=== PATIENT | female | born 1990 | race Caucasian/White ===

== ENCOUNTER 2021-06-17 16:12 | Emergency (ER) | payer SELFPAY ==
[2021-06-17 16:19] VITALS: BP 127/80; PULSE 115; RESP 35; TEMP 36.2; O2SAT 100
== END 2021-06-18 03:47 | disposition left against medical advice (07) ==
PROVIDERS: Emergency Provider Nurse Practitioner
DX: R06.02 Shortness of breath (principal)
CPT/HCPCS: 99199

== ENCOUNTER 2022-06-14 16:37 | Inpatient (IN) | payer OTHER, SELFPAY ==
[2022-06-14 16:55] VITALS: BP 129/82; PULSE 94
[2022-06-14 16:56] VITALS: BMI 30.8
--- NOTE | 2022-06-14 16:57 | LDADM ---
This patient, Susanne Escalante, was admitted to Labor/Delivery/Recovery 108 on 06/14/22 at 16:37. Plans for labor, pain management and were discussed with patient. Patient/family oriented to hospital policies and general routines including ID bracelet, bed and alarms, visiting hours, pain management, procedures, bathroom and other care routines, personal items, smoking policy, room service/diet and guest tray routines, infant security routines, and visiting hours. Patient/Family are encouraged to report perceived risks to care and to ask questions if they do not understand what they are told or what they should do. See OBIX for further documentation.
[2022-06-14 17:14] LABS: Basophils Absolute Auto 0.1 K/mm3 (0.0-0.1); Basophils Percent Auto 0.4 % (0.2-1.2); Eosinophils Absolute Auto 0.2 K/mm3 (0-0.3); Eosinophils Percent Auto 1.1 % (0-4.4); Hemoglobin 13.2 g/dL (12.0-15.0); Immature Granulocyte Absolute 0.28 K/mm3 (0.00-0.031); Immature Granulocyte Percent A 2.1 % (0-0.5); Lymphocytes Absolute Auto 2.68 K/mm3 (0.9-3.2); Lymphocytes Percent Auto 20.1 % (18.3-44.2); Mean Corpuscular HGB Conc 33.8 g/dl (32-36); Mean Corpuscular Hemoglobin 30.2 pg (26-34); Mean Corpuscular Volume 89.2 fl (80-100); Mean Platelet Volume 11.9 fl (7.4-10.4); Monocytes Absolute Auto 0.8 K/mm3 (0.1-0.6); Monocytes Percent Auto 6.3 % (2.6-8.5); Neutrophils Absolute Auto 9.3 K/mm3 (1.3-6.7); Platelet Count Result 170 k/mm3 (150-375); Red Blood Count 4.37 M/mm3 (4.2-5.4); Red Cell Distribution Width 13.7 % (11.5-14.5); White Blood Count 13.3 K/mm3 (4.5-10.0)
[2022-06-14] MEDS: DINOPROSTONE 10 MG VAG INSERT VAGINAL (17:15)
--- NOTE | 2022-06-14 19:17 | WPDANESEPP ---
Anes - Eval Pre Procedure Procedure: labor epidural Date/Time: 06/14/22 19:17 Surgeon: fritz Preop Diagnosis: pain during labor Pre Op Diagnosis: Induction of Labor Patient Data Age: 32 Gender: F Height: 1.65 m Weight: 84 kg Last Vital Signs Pulse 94 06/14/22 16:55 BP 129/82 06/14/22 16:55 O2 Del Method Room Air 06/14/22 16:56 Allergies Allergy/AdvReac Type Severity Reaction Status Date / Time No Known Allergies Allergy Verified 06/14/22 17:03 Home Medications Medication Instructions Recorded Confirmed Type vitamins-iron fumarate 65 1 tablet PO DAILY 01/01/22 06/14/22 History mg iron-folic acid 1 mg tablet Laboratory Tests 06/14/22 06/14/22 06/14/22 16:50 16:50 16:50 WBC 13.3 K/mm3 H K/mm3 (4.5-10.0) RBC 4.37 M/mm3 M/mm3 (4.2-5.4) Hgb 13.2 g/dL g/dL (12.0-15.0) Hct 39.0 % % (37.0-47.0) MCV 89.2 fl fl (80-100) MCH 30.2 pg pg (26-34) MCHC 33.8 g/dl g/dl (32-36) RDW 13.7 % % (11.5-14.5) Plt Count 170 k/mm3 k/mm3 (150-375) MPV 11.9 fl H fl (7.4-10.4) Immature Gran % (Auto) 2.1 % H % (0-0.5) Neut % (Auto) 70.0 % % (45.5-73.1) Lymph % (Auto) 20.1 % % (18.3-44.2) [place] % (Auto) 6.3 % % (2.6-8.5) Eos % (Auto) 1.1 % % (0-4.4) Baso % (Auto) 0.4 % % (0.2-1.2) Lymph # (Auto) 2.68 K/mm3 K/mm3 (0.9-3.2) [place] # (Auto) 0.8 K/mm3 H K/mm3 (0.1-0.6) Eos # (Auto) 0.2 K/mm3 K/mm3 (0-0.3) Baso # (Auto) 0.1 K/mm3 K/mm3 (0.0-0.1) Abs Immat Gran (auto) 0.28 K/mm3 H K/mm3 (0.00-0.031) Absolute Neuts (auto) 9.3 K/mm3 H K/mm3 (1.3-6.7) Absolute Nucleated RBC 0.0 K/mm3 K/mm3 (0.0-0.012) Nucleated RBC % 0.0 % % (0.0-0.2) RPR Pending Blood Type A Positive Antibody Screen Negative Patient hx anesthesia problems: none Family hx anesthesia problems: none Results Review: All pre-operative results and documents have been reviewed as part of the pre-operative evaluation. [facility] Past Medical History Medical History (Updated 06/14/22 @ 19:18 by Danielle Spears CRNA) IUP (intrauterine ), incidental PTSD (post-traumatic stress disorder) Suppression of menstruation Family History Family History (Updated 06/12/22 @ 15:43 by Rigo Martinez RN) Mother Diabetes mellitus Hypertension Cancer Father Skin cancer Lung cancer Social History Social History (Updated 01/01/22 @ 15:33 by Emelina Chen Gerardo) Smoking status: Current some day smoker Tobacco type: cigarettes Second hand tobacco smoke exposure: Yes Alcohol intake: never Substance use: never Substance use type: does not use Lack of Transportation: No Lack of Food: Never True Current Housing: I Have Housing Concerned About Future Housing: No Difficulty Paying Gas/Electric Bills: No Difficulty Paying for Meds: No Currently Unemployed: No Education: Associate Degree Difficulty w/ Childcare or Family Care: No Additional living arrangements comments: 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
[2022-06-14 19:53] VITALS: BP 122/89; PULSE 93; RESP 16; TEMP 36.5
[2022-06-14 23:50] VITALS: BP 121/71; PULSE 80
[2022-06-15] VITALS (52 sets, daily range): BP systolic 72–135; BP diastolic 41–79; PULSE 61–142; RESP 16–18; TEMP 36.6–37.1; O2SAT 93–100
[2022-06-15] MEDS: fentaNYL CITRATE INJ (*CRX) 100 MCG/2 ML VIAL IV PUSH ×2 (00:10→04:32)
[2022-06-15] MEDS: OXYTOCIN 30 UNITS/NS 500 ML 30 UNITS/500 ML BAG IV CONT (05:01)
[2022-06-15] MEDS: LACTATED RINGERS 1,000 ML 125 ML IV CONT ×2 (05:01→05:51)
[2022-06-15] MEDS: ONDANSETRON INJ 4 MG/2 ML VIAL IV PUSH (07:08)
--- NOTE | 2022-06-15 10:15 | P.PCNOB_ITS ---
OB - Delivery Note Procedure Induction method: Per Misoprostol Protocol and Per Pitocin Protocol Delivery augmentation: Rupture of Membranes Delivery monitor: External FHT and External Uterine Route of delivery: Episiotomy description: None Laceration Description: Perineal - 1st Degree Delivery repair: chromic Specimen: No Quantitative Blood Loss (ml): 250 Anesthesia type: Epidural Disposition: Floor Complications: none Narrative: patient prepped in usual manner for this procedure. Maternal expulsive efforts readily delivered vertex over intact perineum. Further effort delivered t he rest the baby and the cord was clamped and cut baby placed on maternal abdomen. Placenta delivered spontaneously. Cervix vagina vulva were inspected with first-degree midline laceration noted. This was readily approximated using 2-0 chromic to approximate the vaginal tissue deep tissue in a subcuticular manner. At this point the procedure was considered terminated the immediate postoperative condition of mother baby were both excellent. [place] Baby Weeks of gestation at delivery: 39 gender: Female Weight (pounds): 7 Weight (ounces): 5 presentation: vertex Placenta delivery description: Spontaneous Cord Vessel Description: 3 Vessels score one minute: 7 score five minutes: 9 AMG Delivery Billing Delivery Delivery: Delivery Charge
--- NOTE | 2022-06-15 10:15 | WPDHPUPDATE1 ---
History and Physical Update Update Date/Time: 06/15/22 10:15 History and Physical has been reviewed, including an updated exam of the patient. There are NO changes in the patient's condition. Risks, benefits, and alternatives have been discussed and questions answered. Patient agrees to proceed with procedure.
--- NOTE | 2022-06-15 10:15 | WPDOBADMIT ---
Obstetrics - Admit Note Admission Note: record reviewed. No pertinent additions to the history and/or any subsequent changes in the physical findings that are not consistent with the expected course of the were found. Additions to the history and/or subsequent changes in the physical findings follow. None.
[2022-06-15] MEDS: WITCH HAZEL 40 PADS 1 PAD TOPICAL (12:38)
[2022-06-15] MEDS: BENZOCAINE 20% AER SPR (*SP) 56 GM CAN 1 SPRAY TOPICAL (12:38)
--- NOTE | 2022-06-15 12:45 | PC.NURSE ---
Patient transferred to post room #288 via wheelchair. Support person present. Oriented to unit, room, information board, rooming in, admission packet and security measures. Patient verbalizes understanding.
[2022-06-15] MEDS: IBUPROFEN 600 MG TABLET PO ×2 (12:57→19:08)
[2022-06-16 00:05] VITALS: BP 105/73; PULSE 74; RESP 16; TEMP 36.6; O2SAT 98
[2022-06-16 03:41] VITALS: BP 109/61; PULSE 73; RESP 16; TEMP 36.3; O2SAT 99
[2022-06-16 04:25] LABS: Hematocrit 38.2 % (37.0-47.0); Hemoglobin 12.4 g/dL (12.0-15.0)
[2022-06-16] MEDS: MULTIVIT/MIN/PREN/FOL AC/IRON TABLET 1 TAB PO (07:49)
[2022-06-16] MEDS: IBUPROFEN 600 MG TABLET PO (07:49)
[2022-06-16] MEDS: TETANUS,DIPHTHERIA,AC PERTUSSIS ADULT (0.5 ML) BOOSTRIX IM (07:50)
[2022-06-16 08:00] VITALS: BP 122/64; PULSE 72; RESP 16; TEMP 36.7; O2SAT 99
--- NOTE | 2022-06-16 09:24 | PM.OBDSVD ---
DS: Admitting Diagnosis Discharge Date 06/16/2022 Admitting Diagnosis OB - DS: Summary OB Procedures : None OB Procedures Intrapartum: Spontaneous Vag Delivery OB Procedures: : None Time Spent with Patient Time attestation: Total time spent providing and/or coordinating discharge services: DS: Data Data Completed and Pending Labs on day of discharge: Labs from last 24 hours 06/16/22 04:19 Hgb 12.4 Hct 38.2 Discharge Plan Discharge Discharging Clinician: León Aaron Patient Disposition: Home, Self-Care Activity: as tolerated Diet: as tolerated Patient Instructions: Antibiotic Form Stand Alone Forms: General Discharge Information Follow-up/Referrals: León Aaron MD [Physician] - 3 Weeks Discharge Medications: New ibuprofen 600 mg Tablet 600 mg PO Q6H PRN (Reason: Cramping) Qty: 30 0RF Continued vit-iron fum-folic ac 65 mg iron- 1 mg tablet 1 tablet PO DAILY Date of admission: 06/14/22 16:37 Primary Care Provider: UNKNOWN,DOCTOR Admitting Provider: León Aaron Attending physician on admission: León Aaron Condition: Stable
[2022-06-17 09:30] VITALS: BP 131/84; PULSE 93; RESP 20; TEMP 36.4; O2SAT 100
[2022-06-17 11:53] LABS: Rapid Plasma Reagin Non-Reactive (NonReactive)
== END 2022-06-16 13:15 | disposition home or self-care (01) | DRG 560 ==
LOC: ANHLDR 16:42 → ANHOB2 06-15 12:49
PROVIDERS: Admitting Provider Obstetrics & Gynecology; Visit Provider Obstetrics & Gynecology
DX: O76 Abnormality in fetal heart rate and rhythm complicating labor and delivery (principal); O70.0 First degree perineal laceration during delivery; Z3A.39 39 weeks gestation of pregnancy; Z37.0 Single live birth
CPT/HCPCS: 36415; 85014; 85018; 85025; 86592; 86850; 86900; 86901; 90715; A9270; J2405; J2590; J2795; J3010; J7120

== ENCOUNTER 2023-01-02 00:45 | Day surgery (SDC) | payer OTHER, SELFPAY ==
[2022-12-20 15:32] VITALS: BMI 31.1
--- NOTE | 2022-12-20 15:38 | PC.NURSE ---
Report to the Outpatient Waiting Room, entrance under the green pavilion located off [facility], at time 0700 on date 01/02/23. Planned Procedure Time: 0900. Time changes happen often and if your time is changed the preop area will call you the afternoon before. - You and your visitor will be asked to self-screen and do not enter if you have any COVID symptoms. - A mask is optional within the hospital at this time. Patients may have clear liquids (water, carbonated beverages, clear teas, apple juice) until 3 hours prior to surgery with a maximum of 20 ounces. - No food from midnight until time of surgery Take the following medications with a SIP of water the morning of surgery: N/A DO NOT STOP ANY OF YOUR OTHER PRESCRIPTION MEDICATIONS PRIOR TO SURGERY ?EXCEPT THE FOLLOWING Medications to discontinue per physician: N/A Date to take last dose: N/A Please no make-up, nail danish, hairspray, perfume, deodorant, or body powder the day of surgery. No jewelry (including any body piercings) or valuables the day of surgery, leave them at home. Please take a shower or bath the night before, or the morning of, surgery with an antibacterial soap. Wear comfortable, loose fitting clothing. - Jewelry must be removed prior to entering the operating room. Rings and piercings that are not removed may be cut off. - The hospital will not accept responsibility for valuables. - Please leave all valuables, including medications, at home the day of surgery. If you are going home after surgery, a licensed ambulance driver paramedic must drive you home. - NO public transportation without another adult if you receive anesthesia. - We recommend that an adult stay with you for 24 hours following discharge. - We also recommend that you do not drive, make important decision, drink alcoholic beverages, or take any drugs that were not prescribed by your health care provider for at least 24 hours after your discharge time. Follow any additional instructions given to you from your surgeon. If you or anyone in your household have experienced Covid symptoms in the past week, please notify your surgeon or the nurse liaison at the phone number below for possible testing. Telephone instructions given to PT - PAULO LUIS and asked if any additional questions and then verbalized understanding. Patient advised to call surgeon office or pre surgery nurse liaison [phone] if any additional questions.
[2023-01-02] VITALS (10 sets, daily range): BP systolic 123–170; BP diastolic 75–91; PULSE 60–96; RESP 13–24; TEMP 36.2–36.4; O2SAT 97–100
[2023-01-02] MEDS: LACTATED RINGERS 1,000 ML 30 ML IV CONT ×2 (07:30→09:40)
--- NOTE | 2023-01-02 08:30 | WPDHPUPDATE1 ---
History and Physical Update Update Date/Time: 01/02/23 08:30 History and Physical has been reviewed, including an updated exam of the patient. There are NO changes in the patient's condition. Risks, benefits, and alternatives have been discussed and questions answered. Patient agrees to proceed with procedure.
--- NOTE | 2023-01-02 08:30 | W.PM.PROC2 ---
Procedure Note - Detailed Date of Procedure 01/02/23 Pre-op Diagnosis micromastia Post-op Diagnosis Same Procedure Performed Bilateral Augmentation Mammaplasty Surgeon Kyle Avilez MD Anesthesia General Findings Bilateral Glenis Conley SoftTouch 485 cc Right - Dual Plane 3 REF# [id number] SN [id number] Left - Dual Plane 2 REF# [id number] SN [id number] Description of Procedure She is here today for bilateral breast augmentation. Previously and again today the risks, benefits, alternatives were discussed in extensive detail. I wanted her to be very realistic about the risks involved as well as expectations. She understands she has a degree of ptosis and will have this (waterafall deformity) post-op. She understands her options for this and has elected to proceed as above. We discussed aftercare and what to monitor for. Made sure answered all of her questions to her satisfaction today and consent was obtained. Marked in the preoperative holding area with their verification. The patient was taken to the operating room placed supine on the operating table. Anesthesia was provided by anesthesiology. A surgical time-out was taken. We cleansed the skin and 1% lidocaine and 0.25% Marcaine with epinephrine was used anesthetize as a field block. She was prepped and draped in a standard sterile fashion. Tegaderm nipple Singer were placed. A 15 blade used to make an incision along the inframammary fold. Dissection was continued at 45 degree angle until the chest wall as identified. I incised the pectoralis major along its inferior border and completely released the inferior border leaving the medial border intact. I created a subpectoral pocket in the appropriate dimensions based on our preoperative planning for the implant. I then copiously irrigated with saline solution and verified a strict hemostasis. Next the use a triple antibiotic and Betadine containing solution to irrigate the pocket. I washed my gloves with the triple antibiotic and Betadine solution. We washed the implant immediately upon opening it with this solution and only opened it when we needed it. I used implant funnel and no-touch technique. The implant was introduced into the pocket using the funnel. Having verified positioning of the implant this was closed using 2-0 PDS followed by 3-0 Monocryl in a running subcuticular 4-0 Monocryl followed by tissue glue. Fluffs and surgical bra were placed. Patient was awoke and taken to PACU without difficulty. All instrument sponge counts were correct at the end of the case. Estimated Blood Loss 25 Drains No Packing No Pathology None sent Complications No immediate complications Condition Stable Disposition PACU
--- NOTE | 2023-01-02 08:31 | WPDANESEPPF ---
Anes - Initial Pre Proc Eval Procedure: Operation Date: 01/02/23 09:00 Proposed Procedures p Bilateral Breast Augmentation - Kyle Avilez MD Date/Time: 01/02/23 08:31 Surgeon: Kyle Avilez MD Pre Op Diagnosis: micromastia Patient Data Age: 32 Gender: F Height: 1.65 m Weight: 85.11 kg Last Vital Signs Temp 97.5 F L 01/02/23 07:30 Pulse 72 01/02/23 07:30 Resp 16 01/02/23 07:30 BP 133/77 01/02/23 07:30 Pulse Ox 100 01/02/23 07:30 O2 Del Method Room Air 01/02/23 07:30 Allergies Allergy/AdvReac Type Severity Reaction Status Date / Time No Known Allergies Allergy Verified 01/02/23 07:59 Home Medications Medication Instructions Recorded Confirmed Type No Home Medications 12/20/22 01/02/23 History Patient hx anesthesia problems: none Family hx anesthesia problems: none Results Review: All pre-operative results and documents have been reviewed as part of the pre-operative evaluation. [facility] Past Medical History Medical History (Updated 06/14/22 @ 19:18 by Danielle Spears CRNA) IUP (intrauterine ), incidental PTSD (post-traumatic stress disorder) Suppression of menstruation Family History Family History (Updated 06/12/22 @ 15:43 by Rigo Martinez RN) Mother Diabetes mellitus Hypertension Cancer Father Skin cancer Lung cancer Social History Social History (Updated 01/01/22 @ 15:33 by Emelina Chen Gerardo) Years smoked: 16 Smoking status: Former smoker Tobacco type: cigarettes Second hand tobacco smoke exposure: Yes Smoking end date: 09/11/21 Alcohol intake: never Substance use: never Substance use type: does not use Lack of Transportation: No Lack of Food: Never True Current Housing: I Have Housing Concerned About Future Housing: No Difficulty Paying Gas/Electric Bills: No Difficulty Paying for Meds: No Currently Unemployed: No Education: Associate Degree Difficulty w/ Childcare or Family Care: No Living arrangements: with family Additional living arrangements comments: Occupation/Education: occupation 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 Gender identity (if verbalized by the patient): Female Sexual Orientation (if Verbalized by the Patient): Straight or Heterosexual Spiritual care concerns: No Anes - Eval Final PreProcedure Day of Procedure 01/02/23 08:31 Patient weight: normal Heart: regular rate and rhythm Lungs: clear to auscultation Airway: Mallampati scale class II Neurological: alert and oriented Last oral intake: >/= 8 hours ASA classification: II Emergent: no Anesthetic plan: proceed Anesthesia type and monitoring: general LMA and standard monitoring Results Review: All pre-operative results and documents have been reviewed as part of the pre-operative evaluation. Informed Consent: The patient's anesthetic plan and its attendant risks and benefits were discussed with the patient/family/POA. Questions were solicited and answers provided to the satisfaction of the patient/family/POA.
[2023-01-02] MEDS: ceFAZolin 2 GM/D5W 50 ML 2 GM/50 ML BAG IVPB (08:48)
[2023-01-02] MEDS: BUPivacaine HCL 0.25% PF 30 ML VIAL INFILTRATE (08:55)
[2023-01-02] MEDS: LIDO 1%/EPINEPHRINE 1:100,000 50 ML VIAL 30 ML INFILTRATE (08:55)
[2023-01-02] MEDS: TRANEXAMIC ACID 1,000MG/ISO100 1,000 MG/100 ML BAG 200 MG IVPB (08:58)
[2023-01-02] MEDS: NACL 0.9% IRRIG POUR BOTTLE 900 ML, GENTAMICIN SULFATE INJ 160 MG, ceFAZolin 2 GM, POVI... IRRIGATION (09:03)
[2023-01-02] MEDS: fentaNYL CITRATE INJ (*CRX) 100 MCG/2 ML VIAL 25 MCG IV PUSH ×7 (10:00→11:12)
[2023-01-02] MEDS: oxyCODONE HCL (*CRX) 5 MG TAB IR PO (11:08)
== END 2023-01-02 12:00 | disposition home or self-care (01) ==
PROVIDERS: Visit Provider Surgery Plastic and Reconstructive Surgery
PROC: (CPT 19325; principal; 2023-01-02 09:00)
DX: Z41.1 Encounter for cosmetic surgery (principal); N64.82 Hypoplasia of breast
CPT/HCPCS: 19325; A9270; J0690; J1100; J1580; J2250; J2405; J2704; J3010; J7120

== ENCOUNTER 2023-08-08 09:26 | Emergency (ER) | payer OTHER, SELFPAY ==
[2023-08-08 09:29] VITALS: BP 127/83; PULSE 72; RESP 18; TEMP 36.6; O2SAT 100
[2023-08-08 09:34] VITALS: O2SAT 100
[2023-08-08 09:35] VITALS: BP 127/83; O2SAT 99
[2023-08-08 09:37] VITALS: O2SAT 100
[2023-08-08] MEDS: LIDOCAINE HCL 2% VISC SOLN 15 ML UDC PO (09:47)
--- NOTE | 2023-08-08 09:56 | ED.GENADULT ---
HPI - General Adult General Chief complaint: Upper Respiratory Infection Stated complaint: sore throat Time Seen by Provider: 08/08/23 09:33 History of Present Illness HPI narrative: patient is a 33-year-old female who presents the ER with reports of sore throat. Ongoing last 3 days. Had a strep swab yesterday that was negative. Has a hoarse voice today. Reports she has difficulty breathing through her nose. No difficulty swallowing. Denies fevers or chills or sweats. No known sick contacts. She has not had COVID swab or flu swab. No chest pain or chest pressure. No exertional dyspnea. Related Data Allergies Allergy/AdvReac Type Severity Reaction Status Date / Time No Known Allergies Allergy Verified 01/02/23 07:59 Review of Systems Constitutional: Constitutional: Reports no additional constitutional complaints ENT: Denies dysphagia, Reports nasal congestion and Reports sore throat Respiratory: Respiratory: Denies cough, Denies dyspnea and Denies wheezing PMFSH Past Medical History Medical History (Updated 08/08/23 @ 12:09 by Seven Chino MD) IUP (intrauterine ), incidental PTSD (post-traumatic stress disorder) Suppression of menstruation Family History Family History (Updated 06/12/22 @ 15:43 by Rigo Martinez RN) Mother Diabetes mellitus Hypertension Cancer Father Skin cancer Lung cancer Social History Social History (Updated 01/01/22 @ 15:33 by Emelina Chen [facility] Years smoked: 16 Smoking status: Former smoker Tobacco type: cigarettes Second hand tobacco smoke exposure: Yes Smoking end date: 09/11/21 Alcohol intake: never Substance use: never Substance use type: does not use Lack of Transportation: No Lack of Food: Never True Current Housing: I Have Housing Concerned About Future Housing: No Difficulty Paying Gas/Electric Bills: No Difficulty Paying for Meds: No Currently Unemployed: No Education: Associate Degree Difficulty w/ Childcare or Family Care: No Living arrangements: with family Additional living arrangements comments: Occupation/Education: occupation 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 HEAD: Normocephalic, atraumatic. ENT: Mucous membranes moist. Left tonsil with a small white crypt lesion, minimal hypertrophy. normal uvula. NECK: Supple. No palpable lymphadenopathy. CHEST: Clear to auscultation. No respiratory distress. HEART: Regular rate and rhythm. Normal peripheral pulses. EXTREMITIES: Normal range of motion. No edema. NEURO: Alert and oriented x3. PSYCH: Normal mood and affect. Course Course Emergency Course: Strep and viral swabs negative. Patient improved with viscous lidocaine. Will discharge supportive care. Patient verbalized understanding. Vital Signs Vital signs: Vital Signs Temperature 97.9 F 08/08/23 09:29 Pulse Rate 72 08/08/23 09:29 Respiratory Rate 18 08/08/23 09:29 Blood Pressure 127/83 08/08/23 09:29 Pulse Oximetry 100 08/08/23 09:29 Oxygen Delivery Room Air 08/08/23 09:29 Temperature 97.9 F 08/08/23 09:29 Pulse Rate 72 08/08/23 09:29 Respiratory Rate 18 08/08/23 09:29 Blood Pressure 120/85 08/08/23 10:01 Pulse Oximetry 98 08/08/23 10:01 Oxygen Delivery Room Air 08/08/23 09:37 Medical Decision Making Vital Signs Vital Signs: Vital Signs Temperature 97.9 F 08/08/23 09:29 Pulse Rate 72 08/08/23 09:29 Respiratory Rate 18 08/08/23 09:29 Blood Pressure 127/83 08/08/23 09:29 Pulse Oximetry 100 08/08/23 09:29 Oxygen Delivery Room Air 08/08/23 09:29 Temperature 97.9 F 08/08/23 09:29 Pulse Rate 72 08/08/23
[2023-08-08 10:01] VITALS: BP 120/85; O2SAT 98
[2023-08-08 10:18] LABS: Strep Group A RT-PCR NOT DETECTED (Negative)
[2023-08-08 10:33] LABS: Influenza A QL RT-PCR Negative (Negative); Influenza B QL RT-PCR Negative (Negative); RSV RNA, RT-PCR Negative (Negative); SARS-CoV-2 RNA PCR Negative (Negative)
== END 2023-08-08 12:33 | disposition home or self-care (01) ==
PROVIDERS: Emergency Provider Emergency Medicine
DX: J04.0 Acute laryngitis (principal); Z20.822 Contact with and (suspected) exposure to COVID-19; Z87.891 Personal history of nicotine dependence
CPT/HCPCS: 87637; 87651; 99283; J8540

== ENCOUNTER 2023-10-06 09:45 | Emergency (ER) | payer MEDICAID, SELFPAY ==
[2023-10-06 09:56] VITALS: BP 118/83; PULSE 90; RESP 18; TEMP 36.8; O2SAT 99
--- NOTE | 2023-10-06 10:12 | ED.SKABFB ---
HPI - Skin/Abscess/Foreign Bdy General Chief complaint: Skin/Abscess/Foreign Body Stated complaint: Skin Sore/Finger Source: patient Mode of arrival: ambulatory Limitations: no limitations History of Present Illness HPI narrative: 33 y/o female presented for c/o painful rash to right ring finger for a few days. States it started as a few small cracks to the bend of the finger, then developed some pus filled bumps. States skin is dry and finger is hard to bend. Denies significant itching. 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 Related Data Allergies Allergy/AdvReac Type Severity Reaction Status Date / Time No Known Allergies Allergy Verified 01/02/23 07:59 Review of Systems Review of Systems: CONSTITUTIONAL: Denies body aches, fever, chills, or sweats. CARDIOVASCULAR: Denies chest pain, palpitations, or edema. RESPIRATORY: Denies cough or dyspnea. SKIN: rash to right ring finger MUSCULOSKELETAL: Denies back pain, joint pain, or myalgia. NEUROLOGIC: Denies headache, numbness, tingling, or weakness. [facility] Past Medical History Medical History IUP (intrauterine ), incidental PTSD (post-traumatic stress disorder) Suppression of menstruation Family History Family History Mother Diabetes mellitus Hypertension Cancer Father Skin cancer Lung cancer Social History Social History Years smoked: 16 Smoking status: Former smoker Tobacco type: cigarettes Second hand tobacco smoke exposure: Yes Smoking end date: 09/11/21 Alcohol intake: never Substance use: never Substance use type: does not use Lack of Transportation: No Lack of Food: Never True Current Housing: I Have Housing Concerned About Future Housing: No Difficulty Paying Gas/Electric Bills: No Difficulty Paying for Meds: No Currently Unemployed: No Education: Associate Degree Difficulty w/ Childcare or Family Care: No Living arrangements: with family Additional living arrangements comments: Occupation/Education: occupation 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 Please see nursing chart for further information. There is no relevant family history pertinent to the presenting complaint Exam Narrative: GENERAL: Well-appearing EYES: conjunctivae clear, and EOMI. ENT: Mucous membranes moist. NECK: Supple. No lymphadenopathy SKIN: Right 4th digit DIP approx 2cm scaly dry red skin, few scattered papules and pustule, tender appears c/w dyshidrotic eczema. Slight decrease in ROM to the DIP. NEURO: Alert and oriented x3. Course Course Emergency Course: Patient is aware of diagnosis, understands and agrees to treatment plan. Anticipatory guidance given. Patient agrees to follow-up as directed and is aware of reasons to seek care at the emergency department. Portions of this record may have been created with voice recognition software Level of Care: Express Care Visit Vital Signs Vital signs: Vital Signs Temperature 98.2 F 10/06/23 09:56 Pulse Rate 90 10/06/23 09:56 Respiratory Rate 18 10/06/23 09:56 Blood Pressure 118/83 10/06/23 09:56 Pulse Oximetry 99 10/06/23 09:56 Oxygen Delivery Room Air 10/06/23 09:56 Temperature 98.2 F 10/06/23 09:56 Pulse Rate 90 10/06/23 09:56 Respiratory Rate 18 10/06/23 09:56 Blood Pressure 118/83 10/06/23 09:56 Pulse Oximetry 99 10/06/23 09:56 Ox
== END 2023-10-06 10:26 | disposition home or self-care (01) ==
PROVIDERS: Emergency Provider Nurse Practitioner Family
DX: L30.9 Dermatitis, unspecified (principal); Z87.891 Personal history of nicotine dependence
CPT/HCPCS: 99213; G0463

== ENCOUNTER 2024-06-09 17:23 | Emergency (ER) | payer OTHER, SELFPAY ==
--- NOTE | ~2024-06-09 | XR_ITS ---
EXAMINATION: XR foot RT min 3V DATE: 06/09/2024 18:04 INDICATION: 2 days of nontraumatic lateral and plantar right foot pain. TECHNIQUE: Dorsoplantar, two oblique and lateral views of the right foot were obtained. COMPARISON: None. FINDINGS: Alignment is normal. No fracture. Mild polyarticular osteoarthritis at the tarsometatarsal and interp halangeal joints. No periosteal reaction or suspicious lytic or blastic bone lesions. Soft tissues ar e unremarkable. No ankle joint effusion. IMPRESSION: 1. Mild polyarticular osteoarthritis in the mid and forefoot. No acute osseous abnormality. Reviewed, dictated and finalized at location A. CEMENTER
[2024-06-09 17:35] VITALS: BP 120/78; PULSE 71; RESP 18; TEMP 36.3; O2SAT 100
--- NOTE | 2024-06-09 17:43 | ED_ITS ---
HPI - Extremity Injury (Lower) General Chief Complaint: Extremity Injury, Lower Stated Complaint: Rt Foot Cramp Time Seen by Provider: 06/09/24 17:45 Source: patient, RN notes reviewed and old records reviewed Mode of arrival: ambulatory Limitations: no limitations History of Present Illness HPI Narrative: 34 year old female who presents to [facility] care with complaints of 2 day history of pain in right lateral right foot and plantar aspect of foot to ball of foot with no known injury.Patient states that 2 nights ago she was awakened by cramp like sensation in the arch of her foot. 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 Patient reports that pain is constant in lateral aspect of foot and plantar aspect form heel to the bottom of her foot. Patient reports only way she can get any relief is if she wraps her foot. Patient reports that even wiggling toes is painful, increased with any movement and attempted maxine bearing. MD complaint: other (foot pain) Onset (ago): day(s) (2) Severity: moderate Exacerbating factors: weight bearing and movement Treatments prior to arrival: other (wrap to right foot and rest off foot) Related Data Allergies Allergy/AdvReac Type Severity Reaction Status Date / Time No Known Allergies Allergy Verified 06/09/24 17:44 Review of Systems Review of Systems: CONSTITUTIONAL: Denies fever, chills, or sweats. EYES: Denies visual changes, redness, or discharge. ENT: Denies rhinorrhea, congestion, sore throat, or otalgia. CARDIOVASCULAR: Denies chest pain, palpitations, or edema. RESPIRATORY: Denies cough or dyspnea. GASTROINTESTINAL: Denies abdominal pain, nausea, vomiting, or diarrhea. GENITOURINARY: Denies dysuria or hematuria. SKIN: Denies rash or itching. MUSCULOSKELETAL: Denies back pain, positive for right foot pain lateral and plantar from heel to ball of foot, or myalgia. NEUROLOGIC: Denies headache, numbness, or weakness. PSYCHIATRIC: Denies anxiety or depression. All systems reviewed & are unremarkable except as noted in HPI and below PMFSH Past Medical History Medical History IUP (intrauterine ), incidental PTSD (post-traumatic stress disorder) Suppression of menstruation Surgical History Surgical History History of breast augmentation Family History Family History Mother Diabetes mellitus Hypertension Cancer Father Skin cancer Lung cancer Social History Social History Years smoked: 16 Smoking status: Former smoker Tobacco type: cigarettes Second hand tobacco smoke exposure: Yes Smoking end date: 09/11/21 Alcohol intake: never Substance use: never Substance use type: does not use Lack of Transportation: No Lack of Food: Never True Current Housing: I Have Housing Concerned About Future Housing: No Difficulty Paying Gas/Electric Bills: No Difficulty Paying for Meds: No Currently Unemployed: No Education: Associate Degree Difficulty w/ Childcare or Family Care: No Living arrangements: with family Additional living arrangements comments: Occupation/Education: occupation 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 There is no relevant family history pertinent to the presenting complaint Exam Narrative: GENERAL: Well-appearing, well-nourished, and in no acute distress. HEAD: Normocephalic, atraumatic. EYES: PERRLA and EOMI. ENT: Nares clear, no rhinorrhea or epistaxis. Mucous membranes moist. NECK: Supple.no lymphadenopathy CHEST: Clear to auscultation. No respiratory distress.SAO2 100% on room air HEART: Regular rate and rhythm. No murmur heard. Normal peripheral pulses. ABDOMEN: Soft, nontender, nondistended, normal active bowel sounds. EXTREMITIES: Normal range of motion. No edema.Exception noted to pain of right foot lateral and plantar aspect with no known injury, pain increases with any movement and with ambulation, no redness sor swelling or bruising, pedal pulse strong sensation and mobility is intact with discomfort.. SKIN: Warm, dry, no rash. NEURO: No focal deficits. Alert and oriented x3. Course Course Emergency Course: Patient is aware of diagnosis, understands and agrees to treatment plan.? Anticipatory guidance given.? Patient agrees to follow-up as directed and is aware of reasons to seek care at the emergency department. Portions of this record may have been created with voice recognition software Level of Care: Express Care Visit Vital Signs Vital signs: Vital Signs Temperature 36.3 C L 06/09/24 17:35 Pulse Rate 71 06/09/24 17:35 Respiratory Rate 18 06/09/24 17:35 Blood Pressure 120/78 06/09/24 17:35 Pulse Oximetry 100 06/09/24 17:35 Oxygen Delivery Room Air 06/09/24 17:35 Temperature 36.3 C L 06/09/24 17:35 Pulse Rate 71 06/09/24 17:35 Respiratory Rate 18 06/09/24 17:35 Blood Pressure 120/78 06/09/24 17:35 Pulse Oximetry 100 06/09/24 17:35 Oxygen Delivery Room Air 06/09/24 17:35 Reviewed MDM - Extremity Injury (Lower) Differential Diagnosis Differential diagnosis: Likely other (right foot fracture, osteoarthritis right foot,plantar fasciitis, pain right foot) Medical Records Attestation: I reviewed the patient's medical records. Imaging Data Attestation: I personally reviewed and interpreted this imaging study as follows: My impression: mild polyarticular osteoarthritis in mid and forefoot right foot, no acute osseous abnormality Radiologist's impression: [place] [id number] XRay Report Signed Patient: Susanne Escalante : 1990 MR#: [id number] Age: 34 Acct:[id number] Loc: [facility] ADM Date: 06/09/24Attending Dr: Ordering Physician: Rajani Escobar APRN Date of Service: 06/09/24 Procedure(s): XR foot RT min 3V Accession Number(s): [id number] cc: Rajani Escobar APRN; UNKNOWN,DOCTOR~ EXAMINATION: XR foot RT min 3V DATE: 06/09/2024 18:04 INDICATION: 2 days of nontraumatic lateral and plantar right foot pain. TECHNIQUE: Dorsoplantar, two oblique and lateral views of the right foot were obtained. COMPARISON: None. FINDINGS: Alignment is normal. No fracture. Mild polyarticular osteoarthritis at the tarsometatarsal and interphalangeal joints. No periosteal reaction or suspicious lytic or blastic bone lesions. Soft tissues are unremarkable. No ankle joint effusion. IMPRESSION: 1. Mild polyarticular osteoarthritis in the mid and forefoot. No acute osseous abnormality. Reviewed, dictated and finalized at location A. [employer] FLOW ASSOCIATE Dictated By: Jeramy Alexander MD 06/09/24 1838 Signed By: <Electronically signed by Jeramy Alexander MD in OV> Critical Care Time Critical Care Time Critical Care Time: No Discharge Plan Discharge Clinical Impression: Osteoarthritis of right foot Qualifiers: Osteoarthritis type: primary Qualified Code(s): M19.071 - Primary osteoarthritis, right ankle and foot Patient Disposition: Home, Self-Care Condition: Stable Instructions: Osteoarthritis (ED), Plantar Fasciitis Exercises (ED) Additional Instructions: Elastic wrap or orthopedic splint as directed for comfort for the next 5-7 days Tylenol for lesser pain Ibuprofen regularly for the next 2-3 days for the inflammation Follow-up with PCP if further problems or concerns Ice to the area 20-30 minutes 4-6 times a day Elevate above heart Exercises as instructed Follow up with PCP if no improvement for referral to orthopedic or podiatry. Wear good supportive shoes Prednisone as prescribed with food Prescriptions: New prednisone 20 mg tablet 20 mg PO BID Qty: 10 0RF Rx Instructions: take with food Follow-up/Referrals: UNKNOWN,DOCTOR [Primary Care Provider] - Stand Alone Forms: Work/School Release IP Time of Disposition: 18:43 Quality [place] Coma Scale Eyes: Open Verbal: Oriented and Alert Motor: Follows Commands [place] Coma Total Score: 15
== END 2024-06-09 18:59 | disposition home or self-care (01) ==
PROVIDERS: Emergency Provider Registered Nurse
DX: M19.071 Primary osteoarthritis, right ankle and foot (principal); Z87.891 Personal history of nicotine dependence
CPT/HCPCS: 73630; 99213; G0463

== ENCOUNTER 2024-07-22 10:56 | Emergency (ER) | payer OTHER, SELFPAY ==
--- NOTE | ~2024-07-22 | XR_ITS ---
EXAMINATION: XR chest 2V 07/22/2024 11:35 INDICATION: Cough PROCEDURE: 2 view chest COMPARISON: No prior studies for comparison. FINDINGS: The lungs are clear. The cardiomediastinal silhouette is within normal limits. There are no pleural effusions. There is no pneumothorax suspected. IMPRESSION: 1: NO ACUTE CARDIOPULMONARY DISEASE. Reviewed, dictated and finalized at location [facility] [employer]
--- NOTE | 2024-07-22 11:04 | ED.URI ---
HPI - URI/Sore Throat General Chief Complaint: Upper Respiratory Infection Stated Complaint: Chest Pain/Cough Time Seen by Provider: 07/22/24 11:04 Source: patient and RN notes reviewed Mode of arrival: ambulatory Limitations: no limitations History of Present Illness HPI Narrative: 34-year-old female presents concern for one-week history of cough, chest pain with coughing, nasal congestion and rhinorrhea. She reports productive cough. She has taken Sudafed without relief. She denies fever MD elicited complaint: cough Related Data Allergies Allergy/AdvReac Type Severity Reaction Status Date / Time No Known Allergies Allergy Verified 07/22/24 11:21 Review of Systems Review of Systems: CONSTITUTIONAL: Denies malaise, chills, sweats, or fever. EYES: Denies visual changes, redness, or discharge. ENT: Reports rhinorrhea, congestion CARDIOVASCULAR: Denies chest pain, palpitations, or edema. RESPIRATORY: Reports cough. Denies dyspnea. GASTROINTESTINAL: Denies abdominal pain, nausea, vomiting, diarrhea SKIN: Denies rash or itching. MUSCULOSKELETAL: Denies myalgia. NEUROLOGIC: Denies headache. All systems reviewed & are unremarkable except as noted in HPI and below PMFSH Past Medical History Medical History IUP (intrauterine ), incidental PTSD (post-traumatic stress disorder) Suppression of menstruation Surgical History Surgical History History of breast augmentation Family History Family History Mother Diabetes mellitus Hypertension Cancer Father Skin cancer Lung cancer Social History Social History Years smoked: 16 Smoking status: Former smoker Tobacco type: cigarettes Second hand tobacco smoke exposure: Yes Smoking end date: 09/11/21 Alcohol intake: never Substance use: never Substance use type: does not use Lack of Transportation: No Lack of Food: Never True Current Housing: I Have Housing Concerned About Future Housing: No Difficulty Paying Gas/Electric Bills: No Difficulty Paying for Meds: No Currently Unemployed: No Education: Associate Degree Difficulty w/ Childcare or Family Care: No Living arrangements: with family Additional living arrangements comments: Occupation/Education: occupation 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 There is no relevant family history pertinent to the presenting complaint Exam Narrative: GENERAL: Nontoxic-appearing, well-nourished, and in no acute distress. HEAD: Normocephalic EYES: PERRLA, conjunctivae clear ENT: Nares clear. Mucous membranes moist. TM pearly hodges with dull light reflex bilaterally; no tragal tenderness. Oropharynx not erythematous without lesions. Tonsils not enlarged and without exudate, no drooling, no hoarseness, no trismus, uvula midline. NECK: Supple. No lymphadenopathy CHEST: Clear to auscultation, breath sounds equal. No wheezing, rhonchi, rales, or stridor. No respiratory distress, speaks in full sentences. HEART: Regular rate and rhythm. No murmur heard. SKIN: Warm, dry, no rash. NEURO: Alert and oriented x3. PSYCH: Normal mood and affect Course Course Emergency Course: Patient is aware of diagnosis, understands and agrees to treatment plan. Anticipatory guidance given. Patient agrees to follow-up as directed and is aware of reasons to seek care at the emergency department. Portions of this record may have been created with voice recognition software Level of Care: Express Care Visit Vital Signs Vital signs: Reviewed. MDM - URI/Sore Throat MDM Narrative Medical decision making narrative: Differential diagnosis considered: Lozano virus, strep pharyngitis, allergic rhinitis, upper respiratory tract infection, sinusitis, rhinosinusitis, nasopharyngitis. viral pharyngitis, otitis media, otitis externa, pneumonia, bronchitis, viral cough syndrome, viral syndrome, and influenza. Exam findings show no acute concerns or changes; patient is non-toxic appearing and is in no distress. Patient is appropriate for outpatient treatment and follow-up. Lab Data Attestation: I reviewed the patient's lab results. Imaging Data My impression: Images reviewed, interpreted by radiologist, agree, see report. Radiologist's impression: Images reviewed, interpreted by radiologist, agree, see report. Critical Care Time Critical Care Time Critical Care Time: No Discharge Plan Discharge Clinical Impression: Bronchitis Patient Disposition: Home, Self-Care Condition: Stable Instructions: Acute Bronchitis (ED) Additional Instructions: Your x-ray looks normal, does not show pneumonia Recommend antihistamine such as Benadryl at night time and Zyrtec or Kelly during the day Cough syrup may cause drowsiness; avoid driving or take it at night time. Also, recommend symptomatic treatment includes: rest, fluids, and increase humidity of the air at home. Recommend Acetaminophen as directed on the bottle to reduce fever, pain, headache. Avoid smoking/second-hand smoke. Please schedule a follow-up visit with your personal physician for further evaluation and treatment within 3-5days. If your symptoms persist, change or worsen significantly before you can contact your personal physician then please, without delay, go to the emergency department for further evaluation. Patient Language: Greek Prescriptions: New promethazine-DM 6.25-15 mg/5 mL syrup 5 ml PO Q4-6H PRN (Reason: cough) Qty: 120 0RF methylprednisolone [Medrol (Mickey)] 4 mg tablets,dose pack See Rx Instructions .ROUTE .COMPLEX Qty: 21 0RF Rx Instructions: orally per package directions No Action prednisone 20 mg tablet 20 mg PO BID Qty: 10 0RF Rx Instructions: take with food Follow-up/Referrals: PHYSICIAN,CAREER DEVELOPMENT COORDINATOR/TEACHER [Primary Care Provider] - Stand Alone Forms: Work/School Release IP Time of Disposition: 11:48
[2024-07-22 11:21] VITALS: BP 129/80; PULSE 76; RESP 16; TEMP 36.7; O2SAT 100
== END 2024-07-22 11:55 | disposition home or self-care (01) ==
PROVIDERS: Emergency Provider Nurse Practitioner
DX: J40 Bronchitis, not specified as acute or chronic (principal); Z87.891 Personal history of nicotine dependence
CPT/HCPCS: 71046; 99213; G0463

== ENCOUNTER 2024-08-18 15:20 | Emergency (ER) | payer OTHER, SELFPAY ==
[2024-08-18 15:46] VITALS: BP 119/66; PULSE 61; RESP 16; TEMP 36.6; O2SAT 100
--- OUTSIDE RECORDS SUMMARY | 2024-08-18 15:52 | XMS_ITS | Referral Summary ---
Author Organization [facility] Address [address] [place] [address] Care Team Providers Care Medical Stenographer Name Role Phone None, Physician Primary Care Provider Unavailabl e Source Comments [facility],non-owned Affiliates and Associated Physician Practices is amultiple site organization consisting of ambulatory clinics and hospital sitesin [place], [place], [place] and [place]. This disclosure is being madepursuant to the Care Everywhere program and may not contain all information available regarding this patient. Last updated [facility] Allergies No known active allergies Medications * Be aware that medications may not be up to date on this document. Alwaysverify current medications with the patient. Medication Sig Dispensed Refills Start Date End Date Status acetaminophen (Tylenol) 325 MG tablet Take 1 (one) tablet by mouth every 4 hours as needed for Fever or Pain Maximum allowable Acetaminophen amount = 4 Grams (4000 mg) / 24 hours. 60 tablet 11/05/2023 Active cyclobenzaprine (Flexeril) 10 MG tablet Take 1 (one) tablet by mouth 3 times daily as needed for Muscle Spasms 30 tablet 11/05/2023 Active lidocaine (Lidoderm) 5 % patch Apply 1 (one) patch to skin once daily Apply patch to most painful area and remove after 12 hours. May reapply a new patch 12 hours later. 20 patch 11/05/2023 Active Immunizations Name Administration Dates Next Due TDAP (7yrs+) 11/04/2023 Social History Tobacco Use Types Packs/Day Years Used Date Smoking Tobacco: Never Smokeless Tobacco: Never Tobacco Cessation:Counseling Given: Not Answered Alcohol Use Standard Drinks/Week Comments Yes 0 (1 standard drink = 0.6 oz pur e alcohol) occasional AUDIT-C Answer Date Recorded Q1: How often do you have a drink containing alc ohol? Monthly or less 11/04/2023 Q2: How many drinks containi ng alcohol do you have on a typical day when you are drinking? 1 or 2 11/04/2023 Q3: How often do you have si x or more drinks on one occasion? Never 11/04/2023 Sex and Gender Information Value Date Recorded Sex Assigned at Not on file Gender Identity Not on file Sexual Orientation Not on file Last Filed Vital Signs Vital Sign Reading Time Taken Comments Blood Pressure 152/92 11/05/2023 1:00 AM CDT Pulse 89 11/05/2023 1:00 AM CDT Temperature 36.6 C (97.8 F) 11/04/2023 9:26 PM CDT Respiratory Rate 16 11/05/2023 1:00 AM CDT Oxygen Saturation 99% 11/05/2023 1:00 AM CDT Inhaled Oxygen Concentration - - Weight 79.4 kg (175 lb) 11/04/2023 9:26 PM CDT Height 165.1 cm (5' 5 ) 11/04/2023 9:26 PM CDT Body Mass Index 29.12 11/04/2023 9:26 PM CDT Plan of Treatment Not on file Care Teams Medical Stenographer Relationship Specialty Start Date End Date None, Physician [id number] [place] [address] PCP - General 11/04/23
--- OUTSIDE RECORDS SUMMARY | 2024-08-18 15:52 | XMS_ITS | Patient Health Summary ---
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 evidence of acute fracture, traumatic disc herniation ordegenerative changes in the cervical, thoracic, or lumbar spine. 3. A straightening of the cervical spine can be positional,developmental or represent muscle spasm. 4 No acute facial bone fractures identified. > Interpreting Provider: Vern Holt MD on 11/04/2023 10:22 PM Rodolfo Glaser MD CT ORDERABLES * CT THORACIC SPINE WO CONTRAST - T/L-spine trauma, spine fracture (11/04/2023 9:56 PM CDT) Anatomical Region Laterality Modality Spine Computed Tomogra phy 11/04/2023 9:59 PM CDT Impressions 11/04/2023 10:22 PM CDT IMPRESSION: 1. Normal appearance of the brain. No acute or traumatic intracranial process. 2. No evidence of acute fracture, traumatic disc herniation or degenerative changes in the cervical, thoracic, or lumbar spine. 3. A straightening of the cervical spine can be positional, developmental or represent muscle spasm. 4 No acute facial bone fractures identified. > Interpreting Provider: Vern Holt MD on 11/04/2023 10:22 PM Narrative 11/04/2023 10:22 PM CDT PROCEDURE: CT HEAD WO CONTRAST, CT FACIAL BONES WO CONTRAST, CT LUMBAR SPINE WO CONTRAST, CT THORACIC SPINE WO CONTRAST, CT CERVICAL SPINE WO CONTRAST DATE/TIME OF EXAM: 11/04/2023 9:58 PM CLINICAL INFORMATION: None relevant/not provided if blank. Indication: Trauma EXAMINATION: 1. CT OF THE HEAD WITHOUT CONTRAST 2. CT OF THE MAXILLOFACIAL BONES WITHOUT CONTRAST 3. CT OF THE CERVICAL SPINE WITHOUT CONTRAST 4. CT OF THE THORACIC SPINE WITHOUT CONTRAST 5. CT OF THE LUMBAR SPINE WITHOUT CONTRAST HISTORY: Trauma TECHNIQUE: CT scanning of the head, cervical, thoracic and lumbar spine as well as maxillofacial bones, orbits, and paranasal sinuses were performed without contrast according to standard protocol followed by reconstruction of the images by the technologist. The CT head the study was subjected to viz. ICH. COMPARISON: None. FINDINGS: HEAD: No acute intra- or extra-axial fluid collections are identified The basilar cisterns are patent. No mass effect or midline shift is seen. The hodges-white matter differentiation is normal. The ventricles are of normal size, shape, and morphology. There are no white matter changes, visible contusion or infarction. No acute fracture or scalp swelling is identified. MAXILLOFACIAL: The orbits and orbital contents appear normal. The paranasal sinuses are clear except for a mild mucosal thickening of the right maxillary sinus. The hard palate, mandible, and temporomandibular joints are intact. Dental caries and periapical lucencies of premolars and molars on the right side of maxilla are noted. The temporomandibular joints are normal and do not demonstrate dislocation or degenerative changes. No acute facial bone fractures are identified. The middle ear cavities and the mastoid air cells are clear. No soft tissue abnormality is identified. CERVICAL SPINE: There is a straightening of the cervical lordosis. Vertebral bodies are normal in height. No fracture, spondylolisthesis, perched facet or suspicious intrinsic bony lesion is identified. The craniocervical junction is normal. The intervertebral disc spaces are normal in height and there is no endplate osteophytosis. No posterior disc abnormality, blood in an or central canal stenosis is seen. The facets appear normal. The uncovertebral joints appear normal. No neural foraminal stenosis is seen. No soft tissue abnormality is identified. THORACIC SPINE: The alignment is normal. Vertebral bodies are normal in height. No fracture, spondylolisthesis, perched facet or suspicious intrinsic bony lesion is identified. The intervertebral disc spaces are normal in heights and there is no endplate osteophytosis. No posterior disc abnormality, blood in central canal or central canal stenosis is seen. The facets appear normal. No neural foraminal stenosis is seen. No soft tissue abnormality is identified. The imaged lungs are clear. The imaged portion of the aorta and mediastinum is within normal limits. LUMBAR SPINE: The alignment is normal. Vertebral bodies are normal in height. No fracture, spondylolisthesis, perched facet or suspicious intrinsic bony lesion is identified. The intervertebral disc spaces are normal in heights and there is no endplate osteophytosis. No posterior disc abnormality, blood in central canal, central canal stenosis or lateral recesses stenosis is seen. The facets appear normal. No neural foraminal stenosis is seen. No paravertebral or retroperitoneal traumatic soft tissue abnormality is identified. A simple cyst of left kidney and a subcentimeter cortical cystic lesion of left kidney which is too small to characterize are noted. Incidental note is made of a gallstone. A corpus luteal cyst in the right ovary is. Procedure Note Vern Holt MD - 11/04/2023 PROCEDURE: CT HEAD WO CONTRAST, CT FACIAL BONES WO CONTRAST, CT LUMBAR SPINE WO CONTRAST, CT THORACIC SPINE WO CONTRAST, CT CERVICAL SPINE WO CONTRAST DATE/TIME OF EXAM: 11/04/2023 9:58 PM CLINICAL INFORMATION: None relevant/not provided if blank. Indication: Trauma EXAMINATION: 1. CT OF THE HEAD WITHOUT CONTRAST 2. CT OF THE MAXILLOFACIAL BONES WITHOUT CONTRAST 3. CT OF THE CERVICAL SPINE WITHOUT CONTRAST 4. CT OF THE THORACIC SPINE WITHOUT CONTRAST 5. CT OF THE LUMBAR SPINE WITHOUT CONTRAST HISTORY: Trauma TECHNIQUE: CT scanning of the head, cervical, thoracic and lumbar spineas well as maxillofacial bones, orbits, and paranasal sinuses wereperformed without contrast according to standard protocol followed byreconstruction of the images by the technologist. The CT head the study was subjectedto viz. ICH. COMPARISON: None. FINDINGS: HEAD: No acute intra- or extra-axial fluid collections are identified Thebasilar cisterns are patent. No mass effect or midline shift is seen. The hodges-white matter differentiation is normal. The ventricles are of normal size, shape, and morphology. There are no white matter changes, visible contusion or infarction. No acute fractureor scalp swelling is identified. MAXILLOFACIAL: The orbits and orbital contents appear normal. The paranasal sinuses are clear except for a mild mucosal thickening of the right maxillary sinus. The hard palate, mandible, and temporomandibular joints are intact.Dental caries and periapical lucencies of premolars and molars on the rightside of maxilla are noted. The temporomandibular joints are normal and do not demonstrate dislocation or degenerative changes. No acute facial bone fractures are identified. The middle ear cavitiesand the mastoid air cells are clear. No soft tissue abnormality isidentified. CERVICAL SPINE: There is a straightening of the cervical lordosis. Vertebral bodies are normal in height. No fracture, spondylolisthesis, perched facet or suspicious intrinsic bony lesion is identified. The craniocervicaljunction is normal. The intervertebral disc spaces are normal in height and thereis no endplate osteophytosis. No posterior disc abnormality, blood in an or central canal stenosis is seen. The facets appear normal. Theuncovertebral joints appear normal. No neural foraminal stenosis is seen. No softtissue abnormality is identified. THORACIC SPINE: The alignment is normal. Vertebral bodies are normal in height. No fracture, spondylolisthesis, perched facet or suspicious intrinsic bony lesion is identified. The intervertebral disc spaces are normal inheights and there is no endplate osteophytosis. No posterior disc abnormality, blood in central canal or central canal stenosis is seen. The facetsappear normal. No neural foraminal stenosis is seen. No soft tissue abnormalityis identified. The imaged lungs are clear. The imaged portion of the aortaand mediastinum is within normal limits. LUMBAR SPINE: The alignment is normal. Vertebral bodies are normal in height. No fracture, spondylolisthesis, perched facet or suspicious intrinsic bony lesion is identified. The intervertebral disc spaces are normal inheights and there is no endplate osteophytosis. No posterior disc abnormality, blood in central canal, central canal stenosis or lateral recessesstenosis is seen. The facets appear normal. No neural foraminal stenosis is seen. No paravertebral or retroperitoneal traumatic soft tissue abnormality is identified. A simple cyst of left kidney and a subcentimeter cortical cystic lesion of left kidney which is too small to characterize arenoted. Incidental note is made of a gallstone. A corpus luteal cyst in theright ovary is. IMPRESSION: 1. Normal appearance of the brain. No acute or traumatic intracranial process. 2. No evidence of acute fracture, traumatic disc herniation ordegenerative changes in the cervical, thoracic, or lumbar spine. 3. A straightening of the cervical spine can be positional,developmental or represent muscle spasm. 4 No acute facial bone fractures identified. > Interpreting Provider: Vern Holt MD on 11/04/2023 10:22 PM Rodolfo Glaser MD CT ORDERABLES * CT CERVICAL SPINE WO CONTRAST - C-Spine Trauma, Spine fracture (11/04/2023 9:56 PM CDT) Anatomical Region Laterality Modality Spine Computed Tomogra phy 11/04/2023 9:59 PM CDT Impressions 11/04/2023 10:22 PM CDT IMPRESSION: 1. Normal appearance of the brain. No acute or traumatic intracranial process. 2. No evidence of acute fracture, traumatic disc herniation or degenerative changes in the cervical, thoracic, or lumbar spine. 3. A straightening of the cervical spine can be positional, developmental or represent muscle spasm. 4 No acute facial bone fractures identified. > Interpreting Provider: Vern Holt MD on 11/04/2023 10:22 PM Narrative 11/04/2023 10:22 PM CDT PROCEDURE: CT HEAD WO CONTRAST, CT FACIAL BONES WO CONTRAST, CT LUMBAR SPINE WO CONTRAST, CT THORACIC SPINE WO CONTRAST, CT CERVICAL SPINE WO CONTRAST DATE/TIME OF EXAM: 11/04/2023 9:58 PM CLINICAL INFORMATION: None relevant/not provided if blank. Indication: Trauma EXAMINATION: 1. CT OF THE HEAD WITHOUT CONTRAST 2. CT OF THE MAXILLOFACIAL BONES WITHOUT CONTRAST 3. CT OF THE CERVICAL SPINE WITHOUT CONTRAST 4. CT OF THE THORACIC SPINE WITHOUT CONTRAST 5. CT OF THE LUMBAR SPINE WITHOUT CONTRAST HISTORY: Trauma TECHNIQUE: CT scanning of the head, cervical, thoracic and lumbar spine as well as maxillofacial bones, orbits, and paranasal sinuses were performed without contrast according to standard protocol followed by reconstruction of the images by the technologist. The CT head the study was subjected to viz. ICH. COMPARISON: None. FINDINGS: HEAD: No acute intra- or extra-axial fluid collections are identified The basilar cisterns are patent. No mass effect or midline shift is seen. The hodges-white matter differentiation is normal. The ventricles are of normal size, shape, and morphology. There are no white matter changes, visible contusion or infarction. No acute fracture or scalp swelling is identified. MAXILLOFACIAL: The orbits and orbital contents appear normal. The paranasal sinuses are clear except for a mild mucosal thickening of the right maxillary sinus. The hard palate, mandible, and temporomandibular joints are intact. Dental caries and periapical lucencies of premolars and molars on the right side of maxilla are noted. The temporomandibular joints are normal and do not demonstrate dislocation or degenerative changes. No acute facial bone fractures are identified. The middle ear cavities and the mastoid air cells are clear. No soft tissue abnormality is identified. CERVICAL SPINE: There is a straightening of the cervical lordosis. Vertebral bodies are normal in height. No fracture, spondylolisthesis, perched facet or suspicious intrinsic bony lesion is identified. The craniocervical junction is normal. The intervertebral disc spaces are normal in height and there is no endplate osteophytosis. No posterior disc abnormality, blood in an or central canal stenosis is seen. The facets appear normal. The uncovertebral joints appear normal. No neural foraminal stenosis is seen. No soft tissue abnormality is identified. THORACIC SPINE: The alignment is normal. Vertebral bodies are normal in height. No fracture, spondylolisthesis, perched facet or suspicious intrinsic bony lesion is identified. The intervertebral disc spaces are normal in heights and there is no endplate osteophytosis. No posterior disc abnormality, blood in central canal or central canal stenosis is seen. The facets appear normal. No neural foraminal stenosis is seen. No soft tissue abnormality is identified. The imaged lungs are clear. The imaged portion of the aorta and mediastinum is within normal limits. LUMBAR SPINE: The alignment is normal. Vertebral bodies are normal in height. No fracture, spondylolisthesis, perched facet or suspicious intrinsic bony lesion is identified. The intervertebral disc spaces are normal in heights and there is no endplate osteophytosis. No posterior disc abnormality, blood in central canal, central canal stenosis or lateral recesses stenosis is seen. The facets appear normal. No neural foraminal stenosis is seen. No paravertebral or retroperitoneal traumatic soft tissue abnormality is identified. A simple cyst of left kidney and a subcentimeter cortical cystic lesion of left kidney which is too small to characterize are noted. Incidental note is made of a gallstone. A corpus luteal cyst in the right ovary is. Procedure Note Vern Holt MD - 11/04/2023 PROCEDURE: CT HEAD WO CONTRAST, CT FACIAL BONES WO CONTRAST, CT LUMBAR SPINE WO CONTRAST, CT THORACIC SPINE WO CONTRAST, CT CERVICAL SPINE WO CONTRAST DATE/TIME OF EXAM: 11/04/2023 9:58 PM CLINICAL INFORMATION: None relevant/not provided if blank. Indication: Trauma EXAMINATION: 1. CT OF THE HEAD WITHOUT CONTRAST 2. CT OF THE MAXILLOFACIAL BONES WITHOUT CONTRAST 3. CT OF THE CERVICAL SPINE WITHOUT CONTRAST 4. CT OF THE THORACIC SPINE WITHOUT CONTRAST 5. CT OF THE LUMBAR SPINE WITHOUT CONTRAST HISTORY: Trauma TECHNIQUE: CT scanning of the head, cervical, thoracic and lumbar spineas well as maxillofacial bones, orbits, and paranasal sinuses wereperformed without contrast according to standard protocol followed byreconstruction of the images by the technologist. The CT head the study was subjectedto viz. ICH. COMPARISON: None. FINDINGS: HEAD: No acute intra- or extra-axial fluid collections are identified Thebasilar cisterns are patent. No mass effect or midline shift is seen. The hodges-white matter differentiation is normal. The ventricles are of normal size, shape, and morphology. There are no white matter changes, visible contusion or infarction. No acute fractureor scalp swelling is identified. MAXILLOFACIAL: The orbits and orbital contents appear normal. The paranasal sinuses are clear except for a mild mucosal thickening of the right maxillary sinus. The hard palate, mandible, and temporomandibular joints are intact.Dental caries and periapical lucencies of premolars and molars on the rightside of maxilla are noted. The temporomandibular joints are normal and do not demonstrate dislocation or degenerative changes. No acute facial bone fractures are identified. The middle ear cavitiesand the mastoid air cells are clear. No soft tissue abnormality isidentified. CERVICAL SPINE: There is a straightening of the cervical lordosis. Vertebral bodies are normal in height. No fracture, spondylolisthesis, perched facet or suspicious intrinsic bony lesion is identified. The craniocervicaljunction is normal. The intervertebral disc spaces are normal in height and thereis no endplate osteophytosis. No posterior disc abnormality, blood in an or central canal stenosis is seen. The facets appear normal. Theuncovertebral joints appear normal. No neural foraminal stenosis is seen. No softtissue abnormality is identified. THORACIC SPINE: The alignment is normal. Vertebral bodies are normal in height. No fracture, spondylolisthesis, perched facet or suspicious intrinsic bony lesion is identified. The intervertebral disc spaces are normal inheights and there is no endplate osteophytosis. No posterior disc abnormality, blood in central canal or central canal stenosis is seen. The facetsappear normal. No neural foraminal stenosis is seen. No soft tissue abnormalityis identified. The imaged lungs are clear. The imaged portion of the aortaand mediastinum is within normal limits. LUMBAR SPINE: The alignment is normal. Vertebral bodies are normal in height. No fracture, spondylolisthesis, perched facet or suspicious intrinsic bony lesion is identified. The intervertebral disc spaces are normal inheights and there is no endplate osteophytosis. No posterior disc abnormality, blood in central canal, central canal stenosis or lateral recessesstenosis is seen. The facets appear normal. No neural foraminal stenosis is seen. No paravertebral or retroperitoneal traumatic soft tissue abnormality is identified. A simple cyst of left kidney and a subcentimeter cortical cystic lesion of left kidney which is too small to characterize arenoted. Incidental note is made of a gallstone. A corpus luteal cyst in theright ovary is. IMPRESSION: 1. Normal appearance of the brain. No acute or traumatic intracranial process. 2. No evidence of acute fracture, traumatic disc herniation ordegenerative changes in the cervical, thoracic, or lumbar spine. 3. A straightening of the cervical spine can be positional,developmental or represent muscle spasm. 4 No acute facial bone fractures identified. > Interpreting Provider: Vern Holt MD on 11/04/2023 10:22 PM Rodolfo Glaser MD CT ORDERABLES * CT FACIAL BONES WO CONTRAST - Facial trauma, fx suspected, blunt (11/04/2023 9:56 PM CDT) Anatomical Region Laterality Modality Head Computed Tomogra phy 11/04/2023 9:59 PM CDT Impressions 11/04/2023 10:22 PM CDT IMPRESSION: 1. Normal appearance of the brain. No acute or traumatic intracranial process. 2. No evidence of acute fracture, traumatic disc herniation or degenerative changes in the cervical, thoracic, or lumbar spine. 3. A straightening of the cervical spine can be positional, developmental or represent muscle spasm. 4 No acute facial bone fractures identified. > Interpreting Provider: Vern Holt MD on 11/04/2023 10:22 PM Narrative 11/04/2023 10:22 PM CDT PROCEDURE: CT HEAD WO CONTRAST, CT FACIAL BONES WO CONTRAST, CT LUMBAR SPINE WO CONTRAST, CT THORACIC SPINE WO CONTRAST, CT CERVICAL SPINE WO CONTRAST DATE/TIME OF EXAM: 11/04/2023 9:58 PM CLINICAL INFORMATION: None relevant/not provided if blank. Indication: Trauma EXAMINATION: 1. CT OF THE HEAD WITHOUT CONTRAST 2. CT OF THE MAXILLOFACIAL BONES WITHOUT CONTRAST 3. CT OF THE CERVICAL SPINE WITHOUT CONTRAST 4. CT OF THE THORACIC SPINE WITHOUT CONTRAST 5. CT OF THE LUMBAR SPINE WITHOUT CONTRAST HISTORY: Trauma TECHNIQUE: CT scanning of the head, cervical, thoracic and lumbar spine as well as maxillofacial bones, orbits, and paranasal sinuses were performed without contrast according to standard protocol followed by reconstruction of the images by the technologist. The CT head the study was subjected to viz. ICH. COMPARISON: None. FINDINGS: HEAD: No acute intra- or extra-axial fluid collections are identified The basilar cisterns are patent. No mass effect or midline shift is seen. The hodges-white matter differentiation is normal. The ventricles are of normal size, shape, and morphology. There are no white matter changes, visible contusion or infarction. No acute fracture or scalp swelling is identified. MAXILLOFACIAL: The orbits and orbital contents appear normal. The paranasal sinuses are clear except for a mild mucosal thickening of the right maxillary sinus. The hard palate, mandible, and temporomandibular joints are intact. Dental caries and periapical lucencies of premolars and molars on the right side of maxilla are noted. The temporomandibular joints are normal and do not demonstrate dislocation or degenerative changes. No acute facial bone fractures are identified. The middle ear cavities and the mastoid air cells are clear. No soft tissue abnormality is identified. CERVICAL SPINE: There is a straightening of the cervical lordosis. Vertebral bodies are normal in height. No fracture, spondylolisthesis, perched facet or suspicious intrinsic bony lesion is identified. The craniocervical junction is normal. The intervertebral disc spaces are normal in height and there is no endplate osteophytosis. No posterior disc abnormality, blood in an or central canal stenosis is seen. The facets appear normal. The uncovertebral joints appear normal. No neural foraminal stenosis is seen. No soft tissue abnormality is identified. THORACIC SPINE: The alignment is normal. Vertebral bodies are normal in height. No fracture, spondylolisthesis, perched facet or suspicious intrinsic bony lesion is identified. The intervertebral disc spaces are normal in heights and there is no endplate osteophytosis. No posterior disc abnormality, blood in central canal or central canal stenosis is seen. The facets appear normal. No neural foraminal stenosis is seen. No soft tissue abnormality is identified. The imaged lungs are clear. The imaged portion of the aorta and mediastinum is within normal limits. LUMBAR SPINE: The alignment is normal. Vertebral bodies are normal in height. No fracture, spondylolisthesis, perched facet or suspicious intrinsic bony lesion is identified. The intervertebral disc spaces are normal in heights and there is no endplate osteophytosis. No posterior disc abnormality, blood in central canal, central canal stenosis or lateral recesses stenosis is seen. The facets appear normal. No neural foraminal stenosis is seen. No paravertebral or retroperitoneal traumatic soft tissue abnormality is identified. A simple cyst of left kidney and a subcentimeter cortical cystic lesion of left kidney which is too small to characterize are noted. Incidental note is made of a gallstone. A corpus luteal cyst in the right ovary is. Procedure Note Vern Holt MD - 11/04/2023 PROCEDURE: CT HEAD WO CONTRAST, CT FACIAL BONES WO CONTRAST, CT LUMBAR SPINE WO CONTRAST, CT THORACIC SPINE WO CONTRAST, CT CERVICAL SPINE WO CONTRAST DATE/TIME OF EXAM: 11/04/2023 9:58 PM CLINICAL INFORMATION: None relevant/not provided if blank. Indication: Trauma EXAMINATION: 1. CT OF THE HEAD WITHOUT CONTRAST 2. CT OF THE MAXILLOFACIAL BONES WITHOUT CONTRAST 3. CT OF THE CERVICAL SPINE WITHOUT CONTRAST 4. CT OF THE THORACIC SPINE WITHOUT CONTRAST 5. CT OF THE LUMBAR SPINE WITHOUT CONTRAST HISTORY: Trauma TECHNIQUE: CT scanning of the head, cervical, thoracic and lumbar spineas well as maxillofacial bones, orbits, and paranasal sinuses wereperformed without contrast according to standard protocol followed byreconstruction of the images by the technologist. The CT head the study was subjectedto viz. ICH. COMPARISON: None. FINDINGS: HEAD: No acute intra- or extra-axial fluid collections are identified Thebasilar cisterns are patent. No mass effect or midline shift is seen. The hodges-white matter differentiation is normal. The ventricles are of normal size, shape, and morphology. There are no white matter changes, visible contusion or infarction. No acute fractureor scalp swelling is identified. MAXILLOFACIAL: The orbits and orbital contents appear normal. The paranasal sinuses are clear except for a mild mucosal thickening of the right maxillary sinus. The hard palate, mandible, and temporomandibular joints are intact.Dental caries and periapical lucencies of premolars and molars on the rightside of maxilla are noted. The temporomandibular joints are normal and do not demonstrate dislocation or degenerative changes. No acute facial bone fractures are identified. The middle ear cavitiesand the mastoid air cells are clear. No soft tissue abnormality isidentified. CERVICAL SPINE: There is a straightening of the cervical lordosis. Vertebral bodies are normal in height. No fracture, spondylolisthesis, perched facet or suspicious intrinsic bony lesion is identified. The craniocervicaljunction is normal. The intervertebral disc spaces are normal in height and thereis no endplate osteophytosis. No posterior disc abnormality, blood in an or central canal stenosis is seen. The facets appear normal. Theuncovertebral joints appear normal. No neural foraminal stenosis is seen. No softtissue abnormality is identified. THORACIC SPINE: The alignment is normal. Vertebral bodies are normal in height. No fracture, spondylolisthesis, perched facet or suspicious intrinsic bony lesion is identified. The intervertebral disc spaces are normal inheights and there is no endplate osteophytosis. No posterior disc abnormality, blood in central canal or central canal stenosis is seen. The facetsappear normal. No neural foraminal stenosis is seen. No soft tissue abnormalityis identified. The imaged lungs are clear. The imaged portion of the aortaand mediastinum is within normal limits. LUMBAR SPINE: The alignment is normal. Vertebral bodies are normal in height. No fracture, spondylolisthesis, perched facet or suspicious intrinsic bony lesion is identified. The intervertebral disc spaces are normal inheights and there is no endplate osteophytosis. No posterior disc abnormality, blood in central canal, central canal stenosis or lateral recessesstenosis is seen. The facets appear normal. No neural foraminal stenosis is seen. No paravertebral or retroperitoneal traumatic soft tissue abnormality is identified. A simple cyst of left kidney and a subcentimeter cortical cystic lesion of left kidney which is too small to characterize arenoted. Incidental note is made of a gallstone. A corpus luteal cyst in theright ovary is. IMPRESSION: 1. Normal appearance of the brain. No acute or traumatic intracranial process. 2. No evidence of acute fracture, traumatic disc herniation ordegenerative changes in the cervical, thoracic, or lumbar spine. 3. A straightening of the cervical spine can be positional,developmental or represent muscle spasm. 4 No acute facial bone fractures identified. > Interpreting Provider: Vern Holt MD on 11/04/2023 10:22 PM Rodolfo Glaser MD CT ORDERABLES * CT HEAD WO CONTRAST - Head Trauma, CSF leak, mental status changes (11/04/2023 9:56 PM CDT) Anatomical Region Laterality Modality Head Computed Tomogra phy 11/04/2023 9:59 PM CDT Impressions 11/04/2023 10:22 PM CDT IMPRESSION: 1. Normal appearance of the brain. No acute or traumatic intracranial process. 2. No evidence of acute fracture, traumatic disc herniation or degenerative changes in the cervical, thoracic, or lumbar spine. 3. A straightening of the cervical spine can be positional, developmental or represent muscle spasm. 4 No acute facial bone fractures identified. > Interpreting Provider: Vern Holt MD on 11/04/2023 10:22 PM Narrative 11/04/2023 10:22 PM CDT PROCEDURE: CT HEAD WO CONTRAST, CT FACIAL BONES WO CONTRAST, CT LUMBAR SPINE WO CONTRAST, CT THORACIC SPINE WO CONTRAST, CT CERVICAL SPINE WO CONTRAST DATE/TIME OF EXAM: 11/04/2023 9:58 PM CLINICAL INFORMATION: None relevant/not provided if blank. Indication: Trauma EXAMINATION: 1. CT OF THE HEAD WITHOUT CONTRAST 2. CT OF THE MAXILLOFACIAL BONES WITHOUT CONTRAST 3. CT OF THE CERVICAL SPINE WITHOUT CONTRAST 4. CT OF THE THORACIC SPINE WITHOUT CONTRAST 5. CT OF THE LUMBAR SPINE WITHOUT CONTRAST HISTORY: Trauma TECHNIQUE: CT scanning of the head, cervical, thoracic and lumbar spine as well as maxillofacial bones, orbits, and paranasal sinuses were performed without contrast according to standard protocol followed by reconstruction of the images by the technologist. The CT head the study was subjected to viz. ICH. COMPARISON: None. FINDINGS: HEAD: No acute intra- or extra-axial fluid collections are identified The basilar cisterns are patent. No mass effect or midline shift is seen. The hogdes-white matter differentiation is normal. The ventricles are of normal size, shape, and morphology. There are no white matter changes, visible contusion or infarction. No acute fracture or scalp swelling is identified. MAXILLOFACIAL: The orbits and orbital contents appear normal. The paranasal sinuses are clear except for a mild mucosal thickening of the right maxillary sinus. The hard palate, mandible, and temporomandibular joints are intact. Dental caries and periapical lucencies of premolars and molars on the right side of maxilla are noted. The temporomandibular joints are normal and do not demonstrate dislocation or degenerative changes. No acute facial bone fractures are identified. The middle ear cavities and the mastoid air cells are clear. No soft tissue abnormality is identified. CERVICAL SPINE: There is a straightening of the cervical lordosis. Vertebral bodies are normal in height. No fracture, spondylolisthesis, perched facet or suspicious intrinsic bony lesion is identified. The craniocervical junction is normal. The intervertebral disc spaces are normal in height and there is no endplate osteophytosis. No posterior disc abnormality, blood in an or central canal stenosis is seen. The facets appear normal. The uncovertebral joints appear normal. No neural foraminal stenosis is seen. No soft tissue abnormality is identified. THORACIC SPINE: The alignment is normal. Vertebral bodies are normal in height. No fracture, spondylolisthesis, perched facet or suspicious intrinsic bony lesion is identified. The intervertebral disc spaces are normal in heights and there is no endplate osteophytosis. No posterior disc abnormality, blood in central canal or central canal stenosis is seen. The facets appear normal. No neural foraminal stenosis is seen. No soft tissue abnormality is identified. The imaged lungs are clear. The imaged portion of the aorta and mediastinum is within normal limits. LUMBAR SPINE: The alignment is normal. Vertebral bodies are normal in height. No fracture, spondylolisthesis, perched facet or suspicious intrinsic bony lesion is identified. The intervertebral disc spaces are normal in heights and there is no endplate osteophytosis. No posterior disc abnormality, blood in central canal, central canal stenosis or lateral recesses stenosis is seen. The facets appear normal. No neural foraminal stenosis is seen. No paravertebral or retroperitoneal traumatic soft tissue abnormality is identified. A simple cyst of left kidney and a subcentimeter cortical cystic lesion of left kidney which is too small to characterize are noted. Incidental note is made of a gallstone. A corpus luteal cyst in the right ovary is. Procedure Note Vern Holt MD - 11/04/2023 PROCEDURE: CT HEAD WO CONTRAST, CT FACIAL BONES WO CONTRAST, CT LUMBAR SPINE WO CONTRAST, CT THORACIC SPINE WO CONTRAST, CT CERVICAL SPINE WO CONTRAST DATE/TIME OF EXAM: 11/04/2023 9:58 PM CLINICAL INFORMATION: None relevant/not provided if blank. Indication: Trauma EXAMINATION: 1. CT OF THE HEAD WITHOUT CONTRAST 2. CT OF THE MAXILLOFACIAL BONES WITHOUT CONTRAST 3. CT OF THE CERVICAL SPINE WITHOUT CONTRAST 4. CT OF THE THORACIC SPINE WITHOUT CONTRAST 5. CT OF THE LUMBAR SPINE WITHOUT CONTRAST HISTORY: Trauma TECHNIQUE: CT scanning of the head, cervical, thoracic and lumbar spineas well as maxillofacial bones, orbits, and paranasal sinuses wereperformed without contrast according to standard protocol followed byreconstruction of the images by the technologist. The CT head the study was subjectedto viz. ICH. COMPARISON: None. FINDINGS: HEAD: No acute intra- or extra-axial fluid collections are identified Thebasilar cisterns are patent. No mass effect or midline shift is seen. The hodges-white matter differentiation is normal. The ventricles are of normal size, shape, and morphology. There are no white matter changes, visible contusion or infarction. No acute fractureor scalp swelling is identified. MAXILLOFACIAL: The orbits and orbital contents appear normal. The paranasal sinuses are clear except for a mild mucosal thickening of the right maxillary sinus. The hard palate, mandible, and temporomandibular joints are intact.Dental caries and periapical lucencies of premolars and molars on the rightside of maxilla are noted. The temporomandibular joints are normal and do not demonstrate dislocation or degenerative changes. No acute facial bone fractures are identified. The middle ear cavitiesand the mastoid air cells are clear. No soft tissue abnormality isidentified. CERVICAL SPINE: There is a straightening of the cervical lordosis. Vertebral bodies are normal in height. No fracture, spondylolisthesis, perched facet or suspicious intrinsic bony lesion is identified. The craniocervicaljunction is normal. The intervertebral disc spaces are normal in height and thereis no endplate osteophytosis. No posterior disc abnormality, blood in an or central canal stenosis is seen. The facets appear normal. Theuncovertebral joints appear normal. No neural foraminal stenosis is seen. No softtissue abnormality is identified. THORACIC SPINE: The alignment is normal. Vertebral bodies are normal in height. No fracture, spondylolisthesis, perched facet or suspicious intrinsic bony lesion is identified. The intervertebral disc spaces are normal inheights and there is no endplate osteophytosis. No posterior disc abnormality, blood in central canal or central canal stenosis is seen. The facetsappear normal. No neural foraminal stenosis is seen. No soft tissue abnormalityis identified. The imaged lungs are clear. The imaged portion of the aortaand mediastinum is within normal limits. LUMBAR SPINE: The alignment is normal. Vertebral bodies are normal in height. No fracture, spondylolisthesis, perched facet or suspicious intrinsic bony lesion is identified. The intervertebral disc spaces are normal inheights and there is no endplate osteophytosis. No posterior disc abnormality, blood in central canal, central canal stenosis or lateral recessesstenosis is seen. The facets appear normal. No neural foraminal stenosis is seen. No paravertebral or retroperitoneal traumatic soft tissue abnormality is identified. A simple cyst of left kidney and a subcentimeter cortical cystic lesion of left kidney which is too small to characterize arenoted. Incidental note is made of a gallstone. A corpus luteal cyst in theright ovary is. IMPRESSION: 1. Normal appearance of the brain. No acute or traumatic intracranial process. 2. No evidence of acute fracture, traumatic disc herniation ordegenerative changes in the cervical, thoracic, or lumbar spine. 3. A straightening of the cervical spine can be positional,developmental or represent muscle spasm. 4 No acute facial bone fractures identified. > Interpreting Provider: Vern Holt MD on 11/04/2023 10:22 PM Rodolfo Glaser MD CT ORDERABLES * XR CHEST 1VW PORTABLE (11/04/2023 9:43 PM CDT) Anatomical Region Laterality Modality Chest Radiographic Greta ging 11/04/2023 9:46 PM CDT Impressions 11/05/2023 9:25 AM CDT IMPRESSION: No acute pulmonary process. Report dictated by Mathew Levi MD (residential insurance inspector). Yong Whiteside MD have personally reviewed and interpreted this examination/study. > Interpreting Provider: Yong Trevino MD on 11/05/2023 9:25 AM Narrative 11/05/2023 9:25 AM CDT PROCEDURE: XR CHEST 1VW PORTABLE, DATE/TIME OF EXAM: 11/04/2023 9:43 PM, LOCATION [facility] INDICATION: Trauma COMPARISON: None. TECHNIQUE: Frontal radiograph of the chest. FINDINGS: There is no focal consolidation, pleural effusion, or pneumothorax. The cardiomediastinal silhouette is normal. The visible bony thorax is intact. A cervical collar is in place. Procedure Note Yong Trevino MD - 11/05/2023 PROCEDURE: XR CHEST 1VW PORTABLE, DATE/TIME OF EXAM: 11/04/2023 9:43PM, LOCATION [facility] INDICATION: Trauma COMPARISON: None. TECHNIQUE: Frontal radiograph of the chest. FINDINGS: There is no focal consolidation, pleural effusion, or pneumothorax. The cardiomediastinal silhouette is normal. The visible bony thorax is intact. A cervical collar is in place. IMPRESSION: No acute pulmonary process. Report dictated by Mathew Levi MD (residential insurance inspector). Yong Whiteside MD have personally reviewed and interpreted this examination/study. > Interpreting Provider: Yong Trevino MD on 11/05/2023 9:25 AM Rodolfo Glaser MD DIAGNOSTIC IMAGING ORDERABLES * XR PELVIS 1 OR 2VW (11/04/2023 9:40 PM CDT) Anatomical Region Laterality Modality Pelvis Radiographic Greta ging 11/04/2023 9:47 PM CDT Impressions 11/05/2023 9:24 AM CDT IMPRESSION: No acute fracture identified. Report dictated by Mathew Levi MD (residential insurance inspector). Yong Whiteside MD have personally reviewed and interpreted this examination/study. > Interpreting Provider: Yong Trevino MD on 11/05/2023 9:24 AM Narrative 11/05/2023 9:24 AM CDT PROCEDURE: XR PELVIS 1 OR 2VW, DATE/TIME OF EXAM: 11/04/2023 9:44 PM, LOCATION [facility] INDICATION: Trauma Fracture suspected COMPARISON: None. FINDINGS: No acute fracture is identified. The femoral heads appear well-seated within their respective acetabula. The pubic symphysis is intact. Bone density and texture are normal. The sacroiliac joints are normal. Procedure Note Yong Trevino MD - 11/05/2023 PROCEDURE: XR PELVIS 1 OR 2VW, DATE/TIME OF EXAM: 11/04/2023 9:44 PM, LOCATION [facility] INDICATION: Trauma Fracture suspected COMPARISON: None. FINDINGS: No acute fracture is identified. The femoral heads appear well-seated within their respective acetabula. The pubic symphysis is intact. Bone density and texture are normal. The sacroiliac joints are normal. IMPRESSION: No acute fracture identified. Report dictated by Mathew Levi MD (residential insurance inspector). I, Yong Trevino MD have personally reviewed and interpreted this examination/study. > Interpreting Provider: Yong Trevino MD on 11/05/2023 9:24 AM Rodolfo Glaser MD DIAGNOSTIC IMAGING ORDERABLES * PTT [facility] (11/04/2023 9:37 PM CDT) APTT 23.9 23.0 - 38.4 Seconds 11/04/2023 10:08 PM CDT [facility] Comment:Suggested therapeuti c range for full dose I.V. unfractionated heparin therapy for venous thromboembolism is 71 to 109 seconds. Blood BLOOD SPECIMEN / Unknown Venipuncture / Unknown 11/04/2023 9:37 PM CDT 11/04/2023 9:41 PM CDT Rodolfo Glaser MD LAB - COAGULATION ORDERABLES [address] [address], [place] [phone] * PT-INR [facility] (11/04/2023 9:37 PM CDT) Pathologist [facility] PT 13.5 12.1 - 14.8 Seconds 11/04/2023 10:08 PM CDT [facility] INR 1.1 See Comment 11/04/2023 10:08 PM CDT [facility] Comment:The suggested therap eutic range for standard coumadin (warfarin) therapy is an INR of 2.0-3.0. For high-risk patients (Mechanical Mitral Valve Prosthesis, etc.), the suggested prophylactic therapeutic range is an INR of 2.5-3.5. Blood BLOOD SPECIMEN / Unknown Venipuncture / Unknown 11/04/2023 9:37 PM CDT 11/04/2023 9:41 PM CDT Rodolfo Glaser MD LAB - COAGULATION ORDERABLES Performing Organization Address City/[facility] Hospital/ZIP Co de Phone Number [address] [address], [facility] [phone] * TYPE + SCREEN PANEL (11/04/2023 9:37 PM CDT) Pathologist [facility] Antibody Screen NEG 10:18 PM CDT [facility] ABO Rh A POS 11/04/2023 10:18 PM CDT [facility] Blood Bank BLOOD SPECIMEN / Unknown Venipuncture / Unknown 11/04/2023 9:37 PM CDT 11/04/2023 9:42 PM CDT Rodolfo Glaser MD LAB - BLOOD BANK O RDERABLES Performing Organization Address City/[facility]/ZIP Co de Phone Number [facility] [address] [place] [address], [facility] [phone] * CBC W AUTO DIFFERENTIAL (11/04/2023 9:37 PM CDT) Pathologist [facility] WBC 9.9 4.0 - 10.7 x10E9/L 11/04/2023 9:46 PM [facility] RBC Count 4.74 3.90 - 5.20 x10E12/L 11/04/2023 9:46 PM [facility] Hemoglobin 13.9 11.9 - 15.8 g/dL 11/04/2023 9:46 PM [facility] Hematocrit 40.7 34.8 - 46.1 % 11/04/2023 9:46 PM [facility] MCV 85.9 80.0 - 98.0 fL 11/04/2023 9:46 PM [facility] MCH 29.3 26.7 - 33.6 pg 11/04/2023 9:46 PM [facility] MCHC 34.2 31.7 - 36.3 g/dL 11/04/2023 9:46 PM [facility] RDW-CV 12.8 11.3 - 14.8 % 11/04/2023 9:46 PM [facility] Platelet Count 194 150 - 420 x10E9/L 11/04/2023 9:46 PM [facility] MPV 11.2 7.8 - 11.4 fL 11/04/2023 9:46 PM [facility] Neutrophil % 62.5 41.0 - 74.0 % 11/04/2023 9:46 PM [facility] Lymphocyte % 29.8 17.0 - 47.0 % 11/04/2023 9:46 PM [facility] Monocyte % 6.1 3.0 - 11.0 % 11/04/2023 9:46 PM [facility] Eosinophil % 1.1 0.0 - 7.0 % 11/04/2023 9:46 PM [facility] Basophil % 0.2 0.0 - 1.6 % 11/04/2023 9:46 PM [facility] Immature Granulocytes % 0.3 0.0 - 1.0 % 11/04/2023 9:46 PM [facility] Neutrophil Absolute 6.17 1.60 - 7.50 x10E9/L 11/04/2023 9:46 PM [facility] Lymphocyte Absolute 2.94 1.00 - 4.40 x10E9/L 11/04/2023 9:46 PM CDT [facility] Monocyte Absolute 0.60 0.15 - 1.00 x10E9/L 11/04/2023 9:46 PM T [facility] Eosinophil Absolute 0.11 0.00 - 0.60 x10E9/L 11/04/2023 9:46 PM [facility] Basophil Absolute 0.02 0.00 - 0.13 x10E9/L 11/04/2023 9:46 PM T [facility] Blood BLOOD SPECIMEN / Unknown Venipuncture / Unknown 11/04/2023 9:37 PM CDT 11/04/2023 9:42 PM CDT Rodolfo Glaser MD LAB - HEMATOLOGY O RDERABLES [facility] [address] [place] [address], [facility] [phone] * (ABNORMAL) BASIC METABOLIC PANEL (CALCIUM TOTAL) (11/04/2023 9:37 PM CDT) BUN 12 7 - 26 mg/dL 11/04/2023 10:16 PM [facility] Creatinine 0.70 0.56 - 0.96 mg/dL 11/04/2023 10:16 PM [facility] Sodium 135(L) 136 - 145 mmol/L 11/04/2023 10:16 PM [facility] Potassium 3.6 3.5 - 4.5 mmol/L 11/04/2023 10:16 PM [facility] Chloride 108(H) 98 - 107 mmol/L 11/04/2023 10:16 PM [facility] CO2 16(L) 22 - 29 mmol/L 11/04/2023 10:16 PM [facility] Glucose 121(H) 70 - 115 mg/dL 11/04/2023 10:16 PM [facility] Calcium 8.7 8.4 - 10.2 mg/dL 11/04/2023 10:16 PM [facility] Anion Gap 11 6 - 16 11/04/2023 10:16 PM CDT [facility] BUN/Creatinine Ratio 17 7 - 23 11/04/2023 10:16 PM CDT [facility] Osmolality Calculated 281 275 - 295 mOsm/kg 11/04/2023 10:16 PM CDT [facility] eGFR by CKD-EPI >90 >=90 mL/min/1.7 3 m2 11/04/2023 10:16 PM CDT [facility] Blood BLOOD SPECIMEN / Unknown Venipuncture / Unknown 11/04/2023 9:37 PM CDT 11/04/2023 9:41 PM CDT Rodolfo Glaser MD LAB - CHEMISTRY OR DERABLES Performing Organization Address [facility]/ZIP Co de Phone Number [address] [address], [place] [phone] * HCG BETA BLOOD QUANTITATIVE (11/04/2023 9:37 PM CDT) Beta-hCG Total Quantitative <3 mIU/mL 11/04/2023 10:23 PM CDT [facility] Comment: HCG Numeric Result Interpretation: Non- Females: < 5 mIU/mL Post-Menopausal Females: < 7 mIU/mL This assay is cleared for use in the early detection of only. It is not approved for any other uses such as tumor marker screening, tumor marker monitoring, etc. and should not be used for any other purposes. Blood BLOOD SPECIMEN / Unknown Venipuncture / Unknown 11/04/2023 9:37 PM CDT 11/04/2023 9:41 PM CDT Srikanth Chino MD LAB - CHEMISTRY [facility] Performing Organization Address [facility]/ZIP Co de Phone Number [address] [address], [place] [phone] * (ABNORMAL) ALCOHOL ETHYL BLOOD (11/04/2023 9:37 PM CDT) Ethanol (mg/dL) 63(H) <10 mg/dL 10:16 PM CDT [facility] Ethanol Calculated (g/dL) 0.063(H) <=0.010 g/dL 11/04/2023 10:16 PM CDT [facility] Blood BLOOD SPECIMEN / Unknown Venipuncture / Unknown 11/04/2023 9:37 PM CDT 11/04/2023 9:41 PM CDT Narrative [facility] - 11/04/2023 10:16 PM CDT Ethanol Interp <10: None Detected. Depression of [employer]: >100 mg/dl Potentially Critical: >250 mg/dl Potentially Fatal >400 mg/dl Ethanol in the patient's blood will contribute to the osmolar gap. Ethanol's contribution to the osmolar gap can be estimated by dividing the concentration of ethanol in mg/dL by 4.6. This test is for clinical use only and does not equal a JOSE for legal purposes. Rodolfo Glaser MD LAB - CHEMISTRY OR DERABLES Performing Organization Address City/State/[facility] Co de Phone Number [facility] [address] [place] [address], [facility] [phone] Care Teams Revenue Field Auditor Relationship Specialty Start Date End Date None, Physician [address] [place] [address] PCP - General 11/04/23
--- OUTSIDE RECORDS SUMMARY | 2024-08-18 15:52 | XMS_ITS | Clinical Summary ---
Author Organization [facility] Address [address] [place] [address] Care Team Providers Care Fire Management Technician Name Role Phone None, Physician Primary Care Provider Unavailabl e Source Comments [facility],non-owned Affiliates and Associated Physician Practices is amultiple site organization consisting of ambulatory clinics and hospital sitesin [place], [place], [place] and [place]. This disclosure is being madepursuant to the Care Everywhere program and may not contain all information available regarding this patient. Last updated 18.[employer] [facility] Allergies No known active allergies Medications * [...] 11/04/2023 9:26 PM CDT Plan of Treatment Health Maintenance Due Date Last Done Comments PAP SMEAR 1990 HIV SCREENING 2005 HEPATITIS C SCREENING 05/01/2008 HEPATITIS B VACCINE (1 of 3 - 19+ 3-dose series) 2009 COVID-19 VACCINE (2 - 2023-2 5 season) 2024 06/09/2021 INFLUENZA VACCINE (#1) 2024 DEPRESSION SCREENING 07/14/2024 DTAP/TDAP/TD VACCINES (2 - T d or Tdap) 11/03/2033 11/04/2023 ZOSTER VACCINE (1 of 2) 2040 HIB VACCINE Aged Out No longer eligi ble based on patient's age to complete this topic HPV VACCINE Aged Out No longer eligi ble based on patient's age to complete this topic MENINGOCOCCAL (Group B) VACCINE Aged Out No longer eligible based on patient's age to complete this topic MENINGOCOCCAL VACCINE Aged Out No grabiel tramaine eligible based on patient's age to complete this topic PNEUMOCOCCAL VACCINE Aged Out No long er eligible based on patient's age to complete this topic Care Teams Fire Management Technician Relationship Specialty Start Date End Date None, Physician [address] [place] [address] PCP - General 11/04/23
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
[2024-08-18 17:05] LABS: EDCOVIDSCREEN Negative (Negative); EDINFLUASCREEN Positive (Negative); EDINFLUBSCREEN Negative (Negative)
== END 2024-08-18 17:53 | disposition home or self-care (01) ==
PROVIDERS: Emergency Provider Registered Nurse
DX: J10.1 Influenza due to other identified influenza virus with other respiratory manifestations (principal); Z87.891 Personal history of nicotine dependence; Z20.822 Contact with and (suspected) exposure to COVID-19
CPT/HCPCS: 87426; 87804; 99202; G0463

== ENCOUNTER 2024-10-02 10:03 | Outpatient (CLI) | payer OTHER, SELFPAY ==
--- OUTSIDE RECORDS SUMMARY | 2024-10-02 10:08 | XMS_ITS ---
Author Organization [facility] Address [address] [address] Care Team Providers Care Flower Arranger Name Role Phone Kev Lazaro Primary Care Provider Encounters Encounter Location Date Provider Diagnosis [address] [place] [address] 05/10/2024 Kev Lazaro Plan Of Treatment No Information Progress Notes * PAULO LUIS REGINADOB: 1990 (34 yo F)Acc No.[id number]:05/10/2024 Progress Notes Patient: PAULO RICHTER Provider: Je Lazaro M.D. :1990 A ge:34 Y S ex:Female Date:05/10/2024 Address[place] [place] [place] Subjective: * Chief Complaints: * * Medical History: Objective: * Vitals: Assessment: Plan: * Treatment: * * Electronic signature of Manny Lazaro MD on 10/02/2024 at 11:07 AM EDT Sign off status: Pending * Provider: Je Lazaro M.D. Date: Generated for Printi ng/Faxing/eTransmitting on: 0 10/02/2024 11:07 AM EDT
--- OUTSIDE RECORDS SUMMARY | 2024-10-02 10:08 | XMS_ITS | Clinical Summary ---
Author Organization [facility] [employer] Address [address] [place] [address] Care Team Providers Care Jailkeeper Name Role Phone None, Physician Primary Care Provider Unavailabl e Source Comments [facility] [employer]non-owned Affiliates and Associated Physician Practices is amultiple site organization consisting of ambulatory clinics and hospital sitesin [place], [place], [place] and [place]. This disclosure is being madepursuant to the Care Everywhere program and may not contain all information available regarding this patient. Last updated 18.[facility] [employer] Allergies No known active allergies Medications * [...] to complete this topic MENINGOCOCCAL (Group B) VACC INE SHARED DECISION-MAKING Aged Out No longer eligibl e based on patient's age to complete this topic MENINGOCOCCAL GROUPS A/C/Y/W VACCINE Aged Out No longer eligible b ased on patient's age to complete this topic PNEUMOCOCCAL VACCINE Aged Out No long er eligible based on patient's age to complete this topic Care Teams Jailkeeper Relationship Specialty Start Date End Date None, Physician [address] [place] [address] PCP - General 11/04/23
--- OUTSIDE RECORDS SUMMARY | 2024-10-02 10:08 | XMS_ITS | Patient Health Record ---
Author Organization [facility] Address [address] [address] Care Team Providers Care Supervisor Safety Deposit Name Role Phone Kev Lazaro Primary Care Provider Allergies No Known Allergies Reason For Referral No Information Medications Medication SIG (Take, Route, Fr equency, [...] Problem Status W/U Status Risk Notes Problem Family history of diabetes mellitus (949181754) Family history of diabetes mellitus (Z83.3) Active confirmed Problem Rash (385787948) Rash (R21) Active confirmed Problem Allergic rhinitis (47316489) Allergic rhinitis (J30.9) Active confirmed Problem Endometriosis (090066592) Endometriosis (N80.9) Active confirmed Problem Tobacco use (911722727) Tobacco use disorder (F17.200) Active confirmed Problem Family history of hypertension (936892734) Family history of hypertension (Z82.49) Active confirmed Problem Eczema (70406233) Eczema (L30.9) Active confirm ed Problem Obesity (027248063) Obesity (BMI 30-39.9) (E66.9) Active confirmed Vital Signs Heart Rate 77 /min 04/26/2024 ple Temperature 97.4 degrees Fahrenheit 04/26/2024 ple Respiratory Rate 16 /min 04/26/2024 ple Blood pressure diastolic 74 mm Hg 04/26/2024 ple Oximetry 98 % 04/26/2024 ple Height 65 in 04/26/2024 ple Blood pressure systolic 116 mm Hg 04/26/2024 ple Weight 188 lbs 04/26/2024 ple BMI 31.28 kg/m2 04/26/2024 ple Encounters Encounter Location Date Provider Diagnosis [place] [id number] [address] 04/26/2024 Kev Lazaro Rash R21 ; Eczema [...] hypertension (ICD-10 - Z82.49) Plan Of Treatment No Information Insurance Providers Payer Name Payer Address Payer Phone Subscriber Number Group Number Insured Name Patient Relationship to Insured Coverage Start Date Coverage End Date [employer] [address] [facility] [place] [phone] [id number] PAULO LUIS Self - patient is the insured 4 Medical (General) History Medical History History ICD Code Endometriosis Surgical History Surgery Date(Month/Year) Breast Augmentation 2022 Hospitalization History Reason Date(Month/Year) Vaginal delivery x 5
[2024-10-02 10:18] LABS: Hematocrit 42.3 % (37.0-47.0); Hemoglobin 13.6 g/dL (12.0-15.0); Mean Corpuscular HGB Conc 32.2 g/dl (32-36); Mean Corpuscular Hemoglobin 28.9 pg (26-34); Mean Platelet Volume 10.9 fl (7.4-10.4); Platelet Count Result 184 k/mm3 (150-375); Red Cell Distribution Width 12.9 % (11.5-14.5); White Blood Count 6.2 K/mm3 (4.5-10.0)
== END 2024-10-02 10:04 | disposition home or self-care (01) ==
LOC: ANHLAB 10:06
PROVIDERS: Visit Provider Obstetrics & Gynecology
DX: N92.0 Excessive and frequent menstruation with regular cycle (principal)
CPT/HCPCS: 36415; 85027

== ENCOUNTER 2024-10-07 00:42 | Day surgery (SDC) | payer OTHER, SELFPAY ==
[2024-09-24 15:05] VITALS: BMI 31.4
--- NOTE | 2024-09-24 15:10 | PC.NURSE ---
Report to the Outpatient Waiting Room, entrance under the green pavilion located off [facility], at time _0900_ on date _[id number]_. Planned Procedure Time: _1100_.? Time changes happen often and if your time is changed the preop area will call you the afternoon before. - You and your visitor will be asked to self-screen and do not enter if you have any COVID symptoms. Please call surgeon if you need to reschedule. - A mask is optional within the hospital at this time. Patients may have clear liquids (water, carbonated beverages, clear teas, apple juice) until 3 hours prior to surgery with a maximum of 20 ounces. - No food from midnight until time of surgery and no smoking, or chewing tobacco (or any form of nicotine). No chewing gum, candy or mints. Take only the following medications with a SIP of water on the morning of surgery: ___None DO NOT STOP ANY OF YOUR OTHER PRESCRIPTION MEDICATIONS PRIOR TO SURGERY EXCEPT THE FOLLOWING Hold all vitamins and supplements for 3 days per anesthesiologist. Medications to discontinue per physician Date to take last dose Please no make-up, nail romansh, hairspray, perfume, deodorant, or body powder the day of surgery.? No jewelry (including any body piercings) or valuables the day of surgery, leave them at home.? Please take a shower or bath the night before, or the morning of, surgery with an antibacterial soap.? Wear comfortable, loose fitting clothing.? - Jewelry must be removed prior to entering the operating room.? Rings and piercings that are not removed may be cut off. - The hospital will not accept responsibility for valuables.? - Please leave all valuables, including medications, at home the day of surgery. If you are going home after surgery, a licensed local city driver must drive you home.? - NO public transportation without another adult if you receive anesthesia. - We recommend that an adult stay with you for 24 hours following discharge. - We also recommend that you do not drive, make important decision, drink alcoholic beverages, or take any drugs that were not prescribed by your health care provider for at least 24 hours after your discharge time. Follow any additional instructions given to you from your surgeon. Telephone instructions given to __Danyelle__and asked if any additional questions and then verbalized understanding. Patient advised to call surgeon office or pre surgery nurse liaison [phone] if any additional questions.
--- OUTSIDE RECORDS SUMMARY | 2024-10-07 00:57 | XMS_ITS ---
Author Organization [facility] Address [address] [address] Care Team Providers Care Veneer Joiner Name Role Phone Kev Lazaro Primary Care Provider [phone] Encounters Encounter Location Date Provider Diagnosis [address] [place] [address] 05/10/2024 Kev Lazaro Plan Of Treatment No Information Progress Notes * PAULO LUIS REGINADOB: 1990 (34 yo F)Acc No.[id number]:05/10/2024 Progress Notes Patient: PAULO RICHTER Provider: Je Lazaro M.D. :1990 A ge:34 Y S ex:Female Date:05/10/2024 [address] [place] Subjective: * Chief Complaints: * * Medical History: Objective: * Vitals: Assessment: Plan: * Treatment: * * Electronic signature of Manny Lazaro MD on 10/07/2024 at 01:56 AM EDT Sign off status: Pending * Provider: Je Lazaro M.D. Date: Generated for Printi ng/Faxing/eTransmitting on: 0 10/07/2024 01:56 AM EDT
--- OUTSIDE RECORDS SUMMARY | 2024-10-07 00:57 | XMS_ITS | Patient Health Record ---
Author Organization [facility] Address [address] [address] Care Team Providers Care Field Operations Coordinator Name Role Phone Kev Lazaro Primary Care [...] Notes Problem Family history of diabetes mellitus (880047458) Family history of diabetes mellitus (Z83.3) Active confirmed Problem Rash (675717544) Rash (R21) Active confirmed Problem Allergic rhinitis (66808765) Allergic rhinitis (J30.9) Active confirmed Problem Endometriosis (614592701) Endometriosis (N80.9) Active confirmed Problem Tobacco use (414659015) Tobacco use disorder (F17.200) Active confirmed Problem Family history of hypertension (008274374) Family history of hypertension (Z82.49) Active confirmed Problem Eczema (95957902) Eczema (L30.9) Active confirm ed Problem Obesity (394145853) Obesity (BMI 30-39.9) (E66.9) Active confirmed Vital Signs Heart Rate 77 /min 04/26/2024 ple Temperature 97.4 degrees Fahrenheit 04/26/2024 ple Respiratory Rate 16 /min 04/26/2024 ple Oximetry 98 % 04/26/2024 ple Blood pressure diastolic 74 mm Hg 04/26/2024 ple Height 65 in 04/26/2024 ple Blood pressure systolic 116 mm Hg 04/26/2024 ple Weight 188 lbs 04/26/2024 ple BMI 31.28 kg/m2 04/26/2024 ple Encounters Encounter Location Date Provider Diagnosis [place] [address] [address] 04/26/2024 Kev Lazaro Rash R21 ; Eczema [...] End Date [employer] [address] [place] [address] [id number] PAULO LUIS Self - patient is the insured 4 Medical (General) History Medical History History ICD Code Endometriosis Surgical History Surgery Date(Month/Year) Breast Augmentation 2022 Hospitalization History Reason Date(Month/Year) Vaginal delivery x 5
--- OUTSIDE RECORDS SUMMARY | 2024-10-07 00:57 | XMS_ITS | Clinical Summary ---
Author Organization [facility] [employer] Address [address] [facility] [place] [address] Care Team Providers Care Fish Seiner Name Role Phone None, Physician Primary Care Provider Unavailabl e Source Comments [facility] [employer],non-owned Affiliates and Associated Physician Practices is amultiple site organization consisting of ambulatory clinics and hospital sitesin [place], [place], [place] and [place]. This disclosure is being madepursuant to the Care Everywhere program and may not contain all information available regarding this patient. Last updated 18.[employer] Allergies No known active allergies Medications * [...] age to complete this topic Care Teams Fish Seiner Relationship Specialty Start Date End Date None, Physician [address] [place] [address] PCP - General 11/04/23
--- OUTSIDE RECORDS SUMMARY | 2024-10-07 00:57 | XMS_ITS ---
Author Organization [facility] [employer] [facility] [employer] Address [address] [address] Care Team Providers Care Counter Intelligence Agent Name Role Phone Kev Lazaro Primary Care Provider [phone] Allergies No Known Allergies REASON FOR VISIT [...] Status W/U Status Risk Notes Problem Rash (971587501) Rash (R21) Active confirmed Problem Eczema (52599993) Eczema (L30.9) Active confirm ed Problem Endometriosis (550712431) Endometriosis (N80.9) Active confirmed Problem Allergic rhinitis (81859100) Allergic rhinitis (J30.9) Active confirmed Problem Tobacco use (581032824) Tobacco use disorder (F17.200) Active confirmed Problem Obesity (085454198) Obesity (BMI 30-39.9) (E66.9) Active confirmed Problem Family history of diabetes mellitus (847351635) Family history of diabetes mellitus (Z83.3) Active confirmed Problem Family history of hypertension (966511821) Family history of hypertension (Z82.49) Active confirmed Vital Signs Temperature 97.4 degrees Fahrenheit 04/26/20 24 Blood pressure systolic 116 mm Hg 04/26/20 24 Blood pressure diastolic 74 mm Hg 024 Heart Rate 77 /min 04/26/2024 Respiratory Rate 16 /min 04/26/2024 Height 65 in 04/26/2024 Weight 188 lbs 04/26/2024 BMI 31.28 kg/m2 04/26/2024 Oximetry 98 % 04/26/2024 ple Encounters Encounter Location Date Provider Diagnosis [facility] [address] [address] 04/26/2024 Kev Lazaro Rash R21 ; Eczema [...] material was published Progress Notes * PAULO LUISDOB: 1990 (34 yo F)Acc No.[id number]:04/26/2024 Progress Notes Patient: PAULO RICHTER Provider: Je Lazaro M.D. :1990 A ge:33 Y S ex:Female Date:04/26/2024 Address:[address] [place] [address], [facility] Subjective: * Chief Complaints: * 1 . New Patient. * ROS: E ndocrine: No E ndocrine Complaints . D enies P olydipsia .?Denies P olyphagia . D enies P olyuria . A llergic/immunologic: Admits E czema. D enies S easonal allergies . D enies U rticaria . H ematologic/lymphatic: No H em/Lymph Complaints . D enies B ruising . D enies B leeding tendencies . D enies L ymphadenopathy . D enies R ecurrent infections . P sychiatric: No P sychiatric Complaints . D enies A nxiety .?Denies D ecreased concentration . D enies I rritability . D enies P anic attacks . D enies S leep disturbance . D enies S adness/tearfulness. N eurologic: No N eurologic Complaints . D enies A bnormal gait . D enies F ocal weakness . D enies H eadache . D enies I ncoordination .?Denies M reanna problems . D enies N umbness . D enies S eizures . D enies?Slurred Speech. M usculoskeletal: Denies M usculo. Complaints . D enies B ack pain .?Denies J oint pain . D enies J oint swelling . D enies L imited range of motion . D enies M uscle aches. D enies M uscle weakness . D enies S tiffness . G enitourinary: No G U Complaints . [...] . D enies V aginal discharge . G astrointestinal: No G I Complaints . [...] stools . D enies B loody stools. R espiratory: No R espiratory Complaints . D enies C ough . D enies S putum production . D enies H emoptysis . D enies S hortness of Breath .?Denies P leuritic pain . D enies W heezing . D enies S noring . D enies A pneas. C ardiovascular: No C ardiovas. Complaints. D enies C hest pain .?Denies D ecr. exercise tolerance . D enies E xertional dyspnea . D enies O rthropnea. D enies P alpitations. D enies S yncope. D enies C laudication . Denies L eg ulcers . D enies P eripheral edema. E ars, nose, mouth, throat: No E [...] oarseness. D enies S ore throat .? E yes: No E ye complaints . D enies B lurred vision. D enies C orrective lenses. D enies D iplopia. D enies E ye irritation . D enies E ye pain . D enies S pots in vision . D enies V ision loss. ? C onstitutional: No C onstit. Complaints . D enies A ppetites change . D enies E xcessive sweating . D enies F atigue . D enies F ever. D enies N ight sweats . D enies W eight gain. D enies W eight loss. * Medical History: E ndometriosis. * Surgical [...] ng/Faxing/eTransmitting on: 0 10/07/2024 01:56 AM EDT History and Physical Notes * Examination Category [...]
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
--- NOTE | 2024-10-07 08:48 | WPDHPUPDATE1 ---
History and Physical Update Update Date/Time: 10/07/24 08:48 History and Physical has been reviewed, including an updated exam of the patient. There are NO changes in the patient's condition. Risks, benefits, and alternatives have been discussed and questions answered. Patient agrees to proceed with procedure.
[2024-10-07 09:20] VITALS: BP 125/70; PULSE 66; RESP 16; TEMP 36.6; O2SAT 100
[2024-10-07] MEDS: ACETAMINOPHEN 500 MG TABLET 1000 MG PO (09:55)
[2024-10-07] MEDS: LACTATED RINGERS 1,000 ML 30 ML IV CONT (10:00)
[2024-10-07 10:11] LABS: BEDSIDEPREGUCG Negative (Negative)
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
[2024-10-07 11:11] VITALS: BP 99/54; PULSE 72; RESP 12; O2SAT 98
--- NOTE | 2024-10-07 11:12 | W.PM.PROC2 ---
Procedure Note - Detailed Date of Procedure 10/07/24 Pre-op Diagnosis 1. Menometrorrhagia 2. Endometrial hypertrophy Post-op Diagnosis Same Procedure Performed 1. Hysteroscopy with uterine curettings Surgeon León Aaron MD Anesthesia MAC Findings Minimally thickened endometrial cavity Description of Procedure Patient prepped and draped in usual manner for this procedure. Cervix was dilated to allow hysteroscope to be placed which was then placed with evaluation of endometrial cavity. Minimally thickened tissue was noted with no polyps or fibroids appreciated. Curettings of all 4 quadrant were obtained. There was no significant bleeding the patient was sent to recovery room in stable condition. Estimated Blood Loss 10 Drains No Packing No Pathology Yes Complications No immediate complications Condition Stable Disposition PACU [facility] Billing Surgery - Charge Forward: Surgery Billing
[2024-10-07 11:40] VITALS: BP 95/61; PULSE 80; RESP 16; O2SAT 97
[2024-10-07 11:57] VITALS: BP 101/61; PULSE 60; RESP 16; O2SAT 100
[2024-10-07 12:10] VITALS: BP 113/77; PULSE 50; RESP 16
[2024-10-07 12:40] VITALS: BP 119/71; PULSE 52; RESP 16
== END 2024-10-07 12:50 | disposition home or self-care (01) ==
PROVIDERS: Visit Provider Obstetrics & Gynecology
PROC: 0U5B8ZZ Destruction of Endometrium, Via Natural or Artificial Opening Endoscopic (ICD-10-PCS; CPT 58563; principal; 2024-10-07 11:00)
DX: R93.89 Abnormal findings on diagnostic imaging of other specified body structures (principal); F43.10 Post-traumatic stress disorder, unspecified; Z98.890 Other specified postprocedural states; Z87.891 Personal history of nicotine dependence; Z84.0 Family history of diseases of the skin and subcutaneous tissue; Z80.1 Family history of malignant neoplasm of trachea, bronchus and lung
CPT/HCPCS: 58558; 88305; A9270; J2003; J2250; J2270; J2704; J7120

== ENCOUNTER 2024-11-19 14:37 | Outpatient (CLI) | payer OTHER, SELFPAY ==
--- OUTSIDE RECORDS SUMMARY | 2024-11-19 14:39 | XMS_ITS | Patient Health Record ---
Author Organization [facility] Address [address] [address] Care Team Providers Care Photonics Technician Name Role Phone Kev Lazaro Primary Care Provider [phone] Allergies No Known Allergies Reason For Referral [...] Notes Problem Family history of diabetes mellitus (867232978) Family history of diabetes mellitus (Z83.3) Active confirmed Problem Rash (879993162) Rash (R21) Active confirmed Problem Allergic rhinitis (40267967) Allergic rhinitis (J30.9) Active confirmed Problem Endometriosis (318818374) Endometriosis (N80.9) Active confirmed Problem Tobacco use (554753614) Tobacco use disorder (F17.200) Active confirmed Problem Family history of hypertension (696931488) Family history of hypertension (Z82.49) Active confirmed Problem Eczema (48815441) Eczema (L30.9) Active confirm ed Problem Obesity (452839976) Obesity (BMI 30-39.9) (E66.9) Active confirmed Vital [...] ple Encounters Encounter Location Date Provider Diagnosis [place] [id number] [address] 04/26/2024 Kev Lazaro Rash R21 ; Eczema [...] End Date [facility] [address] [facility] [place] [address] [phone] [id number] PAULO LUIS Self - patient is the insured 4 Medical (General) History Medical History History ICD Code Endometriosis Surgical History Surgery Date(Month/Year) Breast Augmentation 2022 Hospitalization History Reason Date(Month/Year) Vaginal delivery x 5
--- OUTSIDE RECORDS SUMMARY | 2024-11-19 14:39 | XMS_ITS ---
Author Organization [facility] Address [address] [address] Care Team Providers Care Computing Tutor Name Role Phone Kev Lazaro Primary Care [...] Status W/U Status Risk Notes Problem Rash (836355284) Rash (R21) Active confirmed Problem Eczema (76025254) Eczema (L30.9) Active confirm ed Problem Endometriosis (821191596) Endometriosis (N80.9) Active confirmed Problem Allergic rhinitis (83519616) Allergic rhinitis (J30.9) Active confirmed Problem Tobacco use (653496931) Tobacco use disorder (F17.200) Active confirmed Problem Obesity (274714516) Obesity (BMI 30-39.9) (E66.9) Active confirmed Problem Family history of diabetes mellitus (612186568) Family history of diabetes mellitus (Z83.3) Active confirmed Problem Family history of hypertension (396211038) Family history of hypertension (Z82.49) Active confirmed Vital Signs Temperature 97.4 degrees Fahrenheit 04/26/20 24 Blood pressure systolic 116 mm Hg 04/26/20 24 Blood pressure diastolic 74 mm Hg 024 Heart Rate 77 /min 04/26/2024 Respiratory Rate 16 /min 04/26/2024 Height 65 in 04/26/2024 Weight 188 lbs 04/26/2024 BMI 31.28 kg/m2 04/26/2024 Oximetry 98 % 04/26/2024 ple Encounters Encounter Location Date Provider Diagnosis [facility] [address] [address] 04/26/2024 Kev Lazaro Rash R21 ; Eczema [...] PAULO LUIS REGINADOB: 1990 (34 yo F)Acc No.[id number]:04/26/2024 Progress Notes Patient: PAULO RICHTER Provider: Je Lazaro M.D. :1990 A ge:33 Y S ex:Female Date:04/26/2024 Address:[address] [place] [address] [facility] Subjective: * Chief Complaints: * 1 [...] Electronic signature of Manny Lazaro MD on 11/19/2024 at 03:39 PM EDT Sign off status: Pending * Provider: Je Lazaro M.D. Date: 1 Generated for Printi ng/Faxing/eTransmitting on: 0 11/19/2024 03:39 PM EDT History and Physical Notes * Examination [...]
--- OUTSIDE RECORDS SUMMARY | 2024-11-19 14:39 | XMS_ITS | Clinical Summary ---
Author Organization [facility] Address [address] [place] [address] Care Team Providers Care Cost Recorder Name Role Phone None, Physician Primary Care Provider Unavailabl e Source Comments [facility],non-owned Affiliates and Associated Physician Practices is amultiple site organization consisting of ambulatory clinics and hospital sitesin [place], [place], [place] and [place]. This disclosure is being madepursuant to the Care Everywhere program and may not contain all information available regarding this patient. Last updated 18.[facility] Allergies No known active allergies Medications * Be aware that medications may not be up to date on this document. Alwaysverify current medications with the patient. acetaminophen (Tylenol) 325 MG tablet Take 1 (one) tablet by mouth every 4 hours as needed for Fever or Pain Maximum allowable Acetaminophen amount = 4 Grams (4000 mg) / 24 hours. 60 tablet 4 Active cyclobenzaprin e (Flexeril) 10 MG tablet Take 1 (one) tablet by mouth 3 times daily as needed for Muscle Spasms 30 tablet 4 Active lidocaine (Lidoderm) 5 % patch Apply 1 (one) patch to skin once daily Apply patch to most painful area and remove after 12 hours. May reapply a new patch 12 hours later. 20 patch 4 Active Immunizations Immunization Administration Dates Next Due TDAP (7yrs+) 11/04/2023 [...] more drinks on one occasion? Never 11/04/2023 Comments Unknown Sex and Gender Information Value Date Recorded Sex Assigned at Not on file Legal Sex Female 9:25 PM CDT Gender Identity Not on file Sexual Orientation [...] - 19+ 3-dose series) 2009 COVID-19 VACCINE ( - 2023-2 5 season) 2024 06/09/2021 DEPRESSION SCREENING 07/14/2024 INFLUENZA VACCINE (Season Ended) 2025 DTAP/TDAP/TD VACCINES (2 - T d or [...] on patient's age to complete this topic Insurance [facility] SELF PAY NO INSURANCE Member Subscriber Plan / Payer (Ef fective for All Dates) Name:Paulo Luis Member ID:Not on file Relation to Subscriber:Not on file Name:PAULO LUIS Subscriber ID:Not on file (Home) Address: [address] [place] [address] Payer ID:Not on file Group ID:Not on file Type:Self Pay Address: [place], [place] Care Teams Cost Recorder Relationship Specialty Start Date End Date None, Physician [address] [place] [address] PCP - General 11/04/23
--- OUTSIDE RECORDS SUMMARY | 2024-11-19 14:39 | XMS_ITS ---
Author Organization [facility] Address [address] [address] Care Team Providers Care Humanities Coordinator Name Role Phone Kev Lazaro Primary Care Provider [phone] Encounters Encounter Location Date Provider Diagnosis [address] [place] [address] 05/10/2024 Kev Lazaro Plan Of Treatment No Information Progress Notes * PAULO LUIS REGINADOB: 1990 (34 yo F)Acc No.[id number]:05/10/2024 Progress Notes Patient: PAULO RICHTER Provider: Je Lazaro M.D. :1990 A ge:34 Y S ex:Female Date:05/10/2024 [place] [place] Subjective: * Chief Complaints: * * Medical History: Objective: * Vitals: Assessment: Plan: * Treatment: * * Electronic signature of Manny Lazaro MD on 11/19/2024 at 03:39 PM EDT Sign off status: Pending * Provider: Je Lazaro M.D. Date: Generated for Printi ng/Faxing/eTransmitting on: 0 11/19/2024 03:39 PM EDT
[2024-11-19 15:11] LABS: Hemoglobin 13.6 g/dL (12.0-15.0); Mean Corpuscular HGB Conc 32.4 g/dl (32-36); Mean Corpuscular Hemoglobin 29.4 pg (26-34); Mean Corpuscular Volume 90.7 fl (80-100); Mean Platelet Volume 10.9 fl (7.4-10.4); Platelet Count Result 189 k/mm3 (150-375); Red Blood Count 4.63 M/mm3 (4.2-5.4); Red Cell Distribution Width 12.7 % (11.5-14.5); White Blood Count 10.6 K/mm3 (4.5-10.0)
== END 2024-11-19 14:38 | disposition home or self-care (01) ==
PROVIDERS: Visit Provider Obstetrics & Gynecology
DX: N92.0 Excessive and frequent menstruation with regular cycle (principal)
CPT/HCPCS: 36415; 85027; 86850; 86900; 86901

== ENCOUNTER 2024-11-25 00:42 | Day surgery (SDC) | payer OTHER, SELFPAY ==
[2024-11-16 10:29] VITALS: BMI 31.4
--- NOTE | 2024-11-16 10:34 | PC.NURSE ---
Report to the Outpatient Waiting Room, entrance under the green pavilion located off [facility], at time _0600_ on date _[id number]_. Planned Procedure Time: _0730_. Time changes happen often and if your time is changed the preop area will call you the afternoon before. - You and your visitor will be asked to self-screen and do not enter if you have any COVID symptoms. Please call surgeon if you need to reschedule. - A mask is optional within the hospital at this time. Patients may have clear liquids (water, carbonated beverages, clear teas, apple juice) until 3 hours prior to surgery with a maximum of 20 ounces. - No food from midnight until time of surgery and no smoking, or chewing tobacco (or any form of nicotine). No chewing gum, candy or mints. Take only the following medications with a SIP of water on the morning of surgery: __None___ DO NOT STOP ANY OF YOUR OTHER PRESCRIPTION MEDICATIONS PRIOR TO SURGERY EXCEPT THE FOLLOWING Hold all vitamins and supplements for 3 days per anesthesiologist. Medications to discontinue per physician Date to take last dose Please no make-up, nail romanian, hairspray, perfume, deodorant, or body powder the day of surgery. No jewelry (including any body piercings) or valuables the day of surgery, leave them at home. Please take a shower or bath the night before, or the morning of, surgery with an antibacterial soap. Wear comfortable, loose fitting clothing. - Jewelry must be removed prior to entering the operating room. Rings and piercings that are not removed may be cut off. - The hospital will not accept responsibility for valuables. - Please leave all valuables, including medications, at home the day of surgery. If you are going home after surgery, a licensed residential recycle driver must drive you home. - NO public transportation without another adult if you receive anesthesia. - We recommend that an adult stay with you for 24 hours following discharge. - We also recommend that you do not drive, make important decision, drink alcoholic beverages, or take any drugs that were not prescribed by your health care provider for at least 24 hours after your discharge time. Follow any additional instructions given to you from your surgeon. Telephone instructions given to _Susanne__and asked if any additional questions and then verbalized understanding. Patient advised to call surgeon office or pre surgery nurse liaison [phone] if any additional questions.
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
[2024-11-25] VITALS (10 sets, daily range): BP systolic 109–129; BP diastolic 60–81; PULSE 57–84; RESP 15–20; TEMP 36.2–36.9; O2SAT 97–100
--- OUTSIDE RECORDS SUMMARY | 2024-11-25 00:44 | XMS_ITS | Patient Health Record ---
Author Organization [facility] Address [address] [address] Care Team Providers Care Associate Material Handler Name Role Phone Kev Lazaro Primary Care Provider [phone] Allergies No Known Allergies Reason For Referral [...] Notes Problem Family history of diabetes mellitus (554767247) Family history of diabetes mellitus (Z83.3) Active confirmed Problem Rash (763390668) Rash (R21) Active confirmed Problem Allergic rhinitis (32178434) Allergic rhinitis (J30.9) Active confirmed Problem Endometriosis (074052143) Endometriosis (N80.9) Active confirmed Problem Tobacco use (789218287) Tobacco use disorder (F17.200) Active confirmed Problem Family history of hypertension (259048448) Family history of hypertension (Z82.49) Active confirmed Problem Eczema (52990025) Eczema (L30.9) Active confirm ed Problem Obesity (852821669) Obesity (BMI 30-39.9) (E66.9) Active confirmed Vital [...] ple Encounters Encounter Location Date Provider Diagnosis [place] [id number] [address] 04/26/2024 Kev Lazaro Rash R21 ; Eczema [...] End Date [facility] [address] [place] [address] [id number] PAULO LUIS Self - patient is the insured 4 Medical (General) History Medical History History ICD Code Endometriosis Surgical History Surgery Date(Month/Year) Breast Augmentation 2022 Hospitalization History Reason Date(Month/Year) Vaginal delivery x 5
--- OUTSIDE RECORDS SUMMARY | 2024-11-25 00:44 | XMS_ITS ---
Author Organization [facility] Address [address] [address] Care Team Providers Care Child Life Assistant Name Role Phone Kev Lazaro Primary Care Provider [phone] Encounters Encounter Location Date Provider Diagnosis [address] [place] [address] 05/10/2024 Kev Lazaro Plan Of Treatment No Information Progress Notes * PAULO LUIS REGINADOB: 1990 (34 yo F)Acc No.[id number]:05/10/2024 Progress Notes Patient: PAULO RICHTER Provider: Je Lazaro M.D. :1990 A ge:34 Y S ex:Female Date:05/10/2024 [address] [place] Subjective: * Chief Complaints: * * Medical History: Objective: * Vitals: Assessment: Plan: * Treatment: * * Electronic signature of Manny Lazaro MD on 11/25/2024 at 01:44 AM EDT Sign off status: Pending * Provider: Je Lazaro M.D. Date: Generated for Printi ng/Faxing/eTransmitting on: 0 11/25/2024 01:44 AM EDT
--- OUTSIDE RECORDS SUMMARY | 2024-11-25 00:45 | XMS_ITS ---
Author Organization [facility] Address [address] [address] Care Team Providers Care Clinical Quality Assurance Specialist Name Role Phone Kev Lazaro Primary Care [...] Status W/U Status Risk Notes Problem Rash (208404353) Rash (R21) Active confirmed Problem Eczema (30637990) Eczema (L30.9) Active confirm ed Problem Endometriosis (210465234) Endometriosis (N80.9) Active confirmed Problem Allergic rhinitis (25110104) Allergic rhinitis (J30.9) Active confirmed Problem Tobacco use (519632033) Tobacco use disorder (F17.200) Active confirmed Problem Obesity (374171997) Obesity (BMI 30-39.9) (E66.9) Active confirmed Problem Family history of diabetes mellitus (356263645) Family history of diabetes mellitus (Z83.3) Active confirmed Problem Family history of hypertension (179685595) Family history of hypertension (Z82.49) Active confirmed Vital Signs Temperature 97.4 degrees Fahrenheit 04/26/20 24 Blood pressure systolic 116 mm Hg 04/26/20 24 Blood pressure diastolic 74 mm Hg 024 Heart Rate 77 /min 04/26/2024 Respiratory Rate 16 /min 04/26/2024 Height 65 in 04/26/2024 Weight 188 lbs 04/26/2024 BMI 31.28 kg/m2 04/26/2024 Oximetry 98 % 04/26/2024 ple Encounters Encounter Location Date Provider Diagnosis [facility] [address] [address] 04/26/2024 Kev Lazaro Rash R21 ; Eczema [...] PAULO LUIS REGINADOB: 1990 (34 yo F)Acc No.[id number]:04/26/2024 Progress Notes Patient: PAULO RICHTER Provider: Je Lazaro M.D. :1990 A ge:33 Y S ex:Female Date:04/26/2024 Address:[address] [place] [address] Sadie [facility] Subjective: * Chief Complaints: * 1 . [...] vision . D enies V ision loss. E ars, nose, mouth, throat: No E [...] H oarseness. D enies S ore throat . C ardiovascular: No C ardiovas. Complaints. D enies C hest pain . Denies D ecr. exercise tolerance . D enies [...] . D enies S hortness of Breath . Denies P leuritic pain . D enies W [...] Complaints . D enies B ack pain . Denies J oint pain . D enies J oint swelling . D enies L imited range of motion . D enies M uscle aches. D enies M uscle weakness . D enies S tiffness . N eurologic: No N eurologic Complaints . D enies A bnormal gait . D enies F ocal weakness . D enies H eadache . D enies I ncoordination . Denies M reanna problems . D enies N umbness . D enies S eizures . D enies Slurred Speech. P sychiatric: No P sychiatric Complaints . D enies A nxiety . Denies D ecreased concentration . D enies I [...] ndocrine Complaints . D enies P olydipsia . Denies P olyphagia . D enies P olyuria [...] for medical reasons in the past 12 months? No. C affeine I ntake: m ore than [...] p upils equal, reactive to light and accommodation. EARS: n ormal. ORAL CAVITY: m ucosa [...] ng/Faxing/eTransmitting on: 0 11/25/2024 01:44 AM EDT History and Physical Notes * Examination Category Sub-Category Detail Notes Category Not es General Examination GENERAL APPEARANCE: in no ac [place] distress, well developed, well nourished HEAD: normocephalic, [...]
--- OUTSIDE RECORDS SUMMARY | 2024-11-25 00:45 | XMS_ITS | Clinical Summary ---
Author Organization [facility] Address [address] [place] [address] Care Team Providers Care Weekend Receptionist Name Role Phone None, Physician Primary Care Provider Unavailabl e Source Comments [facility],non-owned Affiliates and Associated Physician Practices is amultiple site organization consisting of ambulatory clinics and hospital sitesin [place], [place], [place] and [place]. This disclosure is being madepursuant to the Care Everywhere program and may not contain all information available regarding this patient. Last updated 18.[employer] Allergies No known active allergies Medications * [...] patient's age to complete this topic Insurance [facility] SELF PAY NO INSURANCE Member Subscriber Plan / Payer (Ef fective for All Dates) Name:Paulo Luis Member ID:Not on file Relation to Subscriber:Not on file Name:PAULO LUIS Subscriber ID:Not on file (Home) Address: [address] [place] [address] Payer ID:Not on file Group ID:Not on file Type:Self Pay Address: [place], [place] Care Teams Weekend Receptionist Relationship Specialty Start Date End Date None, Physician [address] [place] [address] PCP - General 11/04/23
--- NOTE | 2024-11-25 07:24 | WPDHPUPDATE1 ---
History and Physical Update Update Date/Time: 11/25/24 07:24 History and Physical has been reviewed, including an updated exam of the patient. There are NO changes in the patient's condition. Risks, benefits, and alternatives have been discussed and questions answered. Patient agrees to proceed with procedure.
[2024-11-25] MEDS: ACETAMINOPHEN 500 MG TABLET 1000 MG PO ×3 (08:30→19:53)
[2024-11-25] MEDS: KETOROLAC 15 MG/ML VIAL (*BKC) IV PUSH (08:30)
[2024-11-25] MEDS: LACTATED RINGERS 1,000 ML 30 ML IV CONT ×2 (08:30→11:56)
[2024-11-25 09:48] LABS: BEDSIDEPREGUCG Negative (Negative)
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
[2024-11-25] MEDS: ceFAZolin 2 GM/D5W 50 ML 2 GM/50 ML BAG IVPB (10:18)
--- NOTE | 2024-11-25 11:40 | P.OP_ITS ---
Procedure Note - Detailed Date of Procedure 11/25/24 Pre-op Diagnosis 1. Menometrorrhagia 2. Uterine prolapse 3. Dyspareunia Post-op Diagnosis Same Procedure Performed Robotic assisted total laparoscopic hysterectomy with bilateral salpingectomy Surgeon León Aaron MD Anesthesia General Findings Uterus moderately enlarged with tubes and ovaries out abnormality. Uterus prolapsed to the introitus with gentle traction. Description of Procedure Patient prepped and draped usual manner for this procedure. Cervical instruments were placed for uterine mobility throughout the case. Abdominal trocar sites were marked and trocars placed under direct visualization. [email or web address] [place] system was attached to the trocars and instruments were placed the trocars again under direct visualization. Mesial salpinx bilaterally cauterized and cut and removed. Utero-ovarian ligaments cauterized and cut separate the ovary from the operative field. Round ligament cauterized and cut bilaterally. Bladder flap developed without difficulty. Posterior leaf the broad ligament was then incised to skeletonize the uterine vessels. Uterine vessels then cauterized and cut bilaterally with the vascular to the uterus removed. Posterior colpotomy incision was made this was circumferentially made to separate the cervix from the uterus. Uterus was delivered into the vagina without difficulty. Cuff was closed using V lock suture from the right and midline and left angle midline with good approximation hemostasis noted. Irrigation was undertaken with no bleeding. Breaks arm was placed empirically throughout there was no further bleeding. Gas was allowed to escape, incisions were approximated using 4-0 Monocryl after the trocars removed. Patient was sent to recovery with stable condition. Estimated Blood Loss 100 Drains No Packing No Pathology Yes Complications No immediate complications Condition Stable Disposition PACU [facility] Billing Surgery - Charge Forward: Surgery Billing
[2024-11-25] MEDS: fentaNYL CITRATE INJ (*CRX) 100 MCG/2 ML VIAL 25 MCG IV PUSH ×6 (12:06→12:21)
[2024-11-25] MEDS: HYDROmorphone HCL INJ (*CRX) 1 MG/ML SYR 0.5 MG IV PUSH ×2 (12:33→12:40)
[2024-11-25] MEDS: ONDANSETRON INJ 4 MG/2 ML VIAL IV PUSH (12:44)
--- NOTE | 2024-11-25 13:02 | OBPPTRN ---
Patient transferred to post room #282 via bed.
[2024-11-25] MEDS: DEXTROSE 5%/0.45% SOD CHL 1,000 ML 125 ML IV CONT ×2 (13:19→19:50)
[2024-11-25] MEDS: oxyCODONE HCL (*CRX) 5 MG TAB IR 10 MG PO ×2 (13:20→22:01)
[2024-11-25] MEDS: SIMETHICONE 80 MG TAB.CHEW PO ×2 (17:07→22:02)
[2024-11-25] MEDS: MORPHINE SULFATE (*CRX) 4 MG/ML INJ IV PUSH (17:11)
[2024-11-25] MEDS: KETOROLAC 30 MG/ML VIAL (*BKC) IV PUSH (19:56)
[2024-11-25] MEDS: DOCUSATE SODIUM 100 MG CAPSULE PO (23:55)
[2024-11-26] MEDS: KETOROLAC 30 MG/ML VIAL (*BKC) IV PUSH ×2 (01:30→07:57)
[2024-11-26] MEDS: ACETAMINOPHEN 500 MG TABLET 1000 MG PO ×2 (01:30→07:58)
[2024-11-26 04:00] VITALS: BP 104/63; PULSE 69; RESP 18; TEMP 36.3; O2SAT 98
[2024-11-26 04:26] LABS: Basophils Percent Auto 0.2 % (0.2-1.2); Eosinophils Percent Auto 0.2 % (0-4.4); Hematocrit 40.2 % (37.0-47.0); Hemoglobin 12.7 g/dL (12.0-15.0); Immature Granulocyte Absolute 0.05 K/mm3 (0.00-0.031); Immature Granulocyte Percent A 0.4 % (0-0.5); Lymphocytes Absolute Auto 1.69 K/mm3 (0.9-3.2); Lymphocytes Percent Auto 12.8 % (18.3-44.2); Mean Corpuscular HGB Conc 31.6 g/dl (32-36); Mean Corpuscular Hemoglobin 29.7 pg (26-34); Mean Corpuscular Volume 93.9 fl (80-100); Monocytes Absolute Auto 0.9 K/mm3 (0.1-0.6); Monocytes Percent Auto 6.6 % (2.6-8.5); Neutrophils Absolute Auto 10.6 K/mm3 (1.3-6.7); Neutrophils Percent Auto 79.8 % (45.5-73.1); Platelet Count Result 190 k/mm3 (150-375); Red Blood Count 4.28 M/mm3 (4.2-5.4); White Blood Count 13.2 K/mm3 (4.5-10.0)
[2024-11-26] MEDS: oxyCODONE HCL (*CRX) 5 MG TAB IR PO ×2 (04:26→09:29)
[2024-11-26 07:20] VITALS: BP 125/84; PULSE 73; RESP 18; TEMP 36.9; O2SAT 100
--- NOTE | 2024-11-26 07:52 | P.PNAN_ITS ---
Anes - Prog Note Post-Op Date/Time: 11/26/24 07:52 Cardiovascular status: normal Respiratory status: normal Airway patency: baseline Mental status: baseline Post-Op hydration status: normal Vital Signs: Last Vital Signs Temp 36.3 C L 11/26/24 04:00 Pulse 69 11/26/24 04:00 Resp 18 11/26/24 04:00 BP 104/63 11/26/24 04:00 Pulse Ox 98 11/26/24 04:00 O2 Del Method Room Air 11/26/24 04:00 O2 Flow Rate 8 11/25/24 12:25 Pain Score (VAS): 2 I/O: Intake & Output 11/25/24 11/25/24 11/26/24 15:59 23:59 07:59 Intake Total 200 814.6 Output Total 830 Balance 200 -15.4 Laboratory Tests 11/26/24 04:03 11/25/24 11/26/24 09:44 04:03 WBC 13.2 H RBC 4.28 Hgb 12.7 Hct 40.2 MCV 93.9 MCH 29.7 MCHC 31.6 L RDW 13.0 Plt Count 190 MPV 11.0 H Immature Gran % (Auto) 0.4 Neut % (Auto) 79.8 H Lymph % (Auto) 12.8 L [place] % (Auto) 6.6 Eos % (Auto) 0.2 Baso % (Auto) 0.2 Lymph # (Auto) 1.69 [place] # (Auto) 0.9 H Eos # (Auto) 0.0 Baso # (Auto) 0.0 Abs Immat Gran (auto) 0.05 H Absolute Neuts (auto) 10.6 H Absolute Nucleated RBC 0.000 Nucleated RBC % 0.0 POC Urine HCG, Qual Negative Post-procedural complaints: none Patient Feedback: Patient satisfied with anesthetic care.
[2024-11-26] MEDS: SIMETHICONE 80 MG TAB.CHEW PO (07:57)
[2024-11-26] MEDS: DOCUSATE SODIUM 100 MG CAPSULE PO (07:58)
[2024-11-26] MEDS: NITROFURANTOIN MONOHYD MACROCR 100 MG CAP PO (09:59)
== END 2024-11-26 10:03 | disposition home or self-care (01) ==
LOC: ANHSURGERY 07:32 → ANHOB2 12:56
PROVIDERS: Visit Provider Obstetrics & Gynecology
PROC: (CPT 58571; principal; 2024-11-25 09:30)
DX: D25.1 Intramural leiomyoma of uterus (principal); N81.4 Uterovaginal prolapse, unspecified; G89.18 Other acute postprocedural pain; F43.10 Post-traumatic stress disorder, unspecified; E66.9 Obesity, unspecified; Z68.33 Body mass index [BMI] 33.0-33.9, adult; Z98.890 Other specified postprocedural states; Z87.891 Personal history of nicotine dependence; Z84.0 Family history of diseases of the skin and subcutaneous tissue; Z80.1 Family history of malignant neoplasm of trachea, bronchus and lung
CPT/HCPCS: 58571; S2900; 36415; 85025; 88307; 99199; A9270; J0690; J1100; J1171; J1885; J2003; J2250; J2270; J2405; J2704; J3010; J7030; J7120

== ENCOUNTER 2025-05-28 09:48 | Emergency (ER) | payer OTHER, SELFPAY ==
--- OUTSIDE RECORDS SUMMARY | 2024-04-26 07:45 | XMS_ITS ---
Author Organization [facility] Address [address] [address] Care Team Providers Care Boatswain Mate Name Role Phone Kev Lazaro Primary Care Provider Allergies No Known Allergies REASON FOR VISIT New Patient Medications Medication SIG (Take, Route, Fr equency, Duration) Notes Start Date End Date Status Ibuprofen 200 MG 1-2 capsule with food or milk as needed Orally Three times a day As needed Active Social History Tobacco Use: Social History Observation Description Date Details (start date - stop date) Former Smoker 04/13/2006 - 09/11/2022 Tobacco Control (Standard) Question Answer Notes Tobacco use: Former smoker When did you start smoking? 04/13/2006 When did you stop smoking? 09/11/2022 How long has it been since you last smoked? 1-5 years AUDIT-C (Standard) Question Answer Notes Did you have a drink contain ing alcohol in the past year? Yes How often did you have six o r more drinks on one occasion in the past year? Never (0 point) How many drinks did you have on a typical day when you were drinking in the past year? 1 or 2 drinks (0 point) How often did you have a dri nk containing alcohol in the past year? 2 to 4 times a month (2 points) Points 2 Interpretation Negative Problems Problem Type SNOMED Code ICD Code Onset Dates Problem Status W/U Status Risk Notes Problem Rash (487358743) Rash (R21) Active confirmed Problem Eczema (32830030) Eczema (L30.9) Active confirm ed Problem Endometriosis (097781186) Endometriosis (N80.9) Active confirmed Problem Allergic rhinitis (16300906) Allergic rhinitis (J30.9) Active confirmed Problem Tobacco use (148901004) Tobacco use disorder (F17.200) Active confirmed Problem Obesity (232358182) Obesity (BMI 30-39.9) (E66.9) Active confirmed Problem Family history of diabetes mellitus (725700025) Family history of diabetes mellitus (Z83.3) Active confirmed Problem Family history of hypertension (681618338) Family history of hypertension (Z82.49) Active confirmed Vital Signs Temperature 97.4 degrees Fahrenheit 04/26/20 24 Blood pressure systolic 116 mm Hg 04/26/20 24 Blood pressure diastolic 74 mm Hg 024 Heart Rate 77 /min 04/26/2024 Respiratory Rate 16 /min 04/26/2024 Height 65 in 04/26/2024 Weight 188 lbs 04/26/2024 BMI 31.28 kg/m2 04/26/2024 Oximetry 98 % 04/26/2024 ple Encounters Encounter Location Date Provider Diagnosis [facility] [address] [address] 04/26/2024 Kev Lazaro Rash R21 ; Eczema L30.9 ; Endometriosis N80.9 ; Allergic rhinitis J30.9 ; Tobacco use disorder F17.200 ; Obesity (BMI 30-39.9) E66.9 ; Family history of diabetes mellitus Z83.3 and Family history of hypertension Z82.49 Assessments Encounter Date Diagnosis (ICD Code) Assessment Notes Treatment Notes Treatment Clinical Notes Section Notes 04/26/2024 Rash (ICD-10 - R21) Rash: Care Instructions material was published 04/26/2024 Eczema (ICD-10 - L30.9) 04/26/2024 Endometriosis (ICD-10 - N80.9) 04/26/2024 Allergic rhinitis (ICD-10 - J30.9) 04/26/2024 Tobacco use disorder (ICD-10 - F17.200) 04/26/2024 Obesity (BMI 30-39.9) (ICD-10 - E66.9) 04/26/2024 Family history of diabetes mellitus (ICD-10 - Z83.3) 04/26/2024 Family history of hypertension (ICD-10 - Z82.49) Plan Of Treatment Treatment Notes Assessment Notes Rash Rash: Care Instructi ons material was published Progress Notes * PAULO LUIS REGINADOB: 1990 (35 yo F)Acc No.[id number]:04/26/2024 Progress Notes Patient: PAULO RICHTER Provider: Je Lazaro M.D. :1990 A ge:33 Y S ex:Female Date:04/26/2024 Address:[address] [place] [address] [facility] Subjective: * Chief Complaints: * 1 . New Patient. * ROS: C onstitutional: No C onstit. Complaints . D enies A ppetites change . D enies E xcessive sweating . D enies F atigue . D enies F ever. D enies N ight sweats . D enies W eight gain. D enies W eight loss. E yes: No E ye complaints . D enies B lurred vision. D enies C orrective lenses. D enies D iplopia. D enies E ye irritation . D enies E ye pain . D enies S pots in vision . D enies V ision loss. ? E ars, nose, mouth, throat: No E NT complaints . D enies E ar pain . D enies H earing loss . D enies T innitus. D enies V ertigo. D enies F acial pain . D enies N monserrat discharge. D enies N monserrat obstruction . D enies N osebleeds. D enies P ostnasal drainage . D enies B leeding gums. D enies D ental pain . D enies M outh Lesions . D enies H oarseness. D enies S ore throat .? C ardiovascular: No C ardiovas. Complaints. D enies C hest pain .?Denies D ecr. exercise tolerance . D enies E xertional dyspnea . D enies O rthropnea. D enies P alpitations. D enies S yncope. D enies C laudication . Denies L eg ulcers . D enies P eripheral edema. R espiratory: No R espiratory Complaints . D enies C ough . D enies S putum production . D enies H emoptysis . D enies S hortness of Breath .?Denies P leuritic pain . D enies W heezing . D enies S noring . D enies A pneas. G astrointestinal: No G I Complaints . D enies A bdominal pain . D enies B loating . D enies F ood intolerance . D enies N ausea. D enies V omiting . D enies D ysphagia . D enies R eflux/heartburn . D enies C hange in bowel habits . D enies C onstipation . D enies D iarrhea . D enies B lack stools . D enies B loody stools. G enitourinary: No G U Complaints . D enies C hange in urinary stream . D enies D ysuria . D enies H ematuria . D enies I ncontinence . D enies N octuria . D enies U rinary frequency . D enies U rinary urgency . D enies D ysmenorrhea. D enies D yspareunia. D enies S exual dysfunction . D enies V aginal discharge . M usculoskeletal: Denies M usculo. Complaints . D enies B ack pain .?Denies J oint pain . D enies J oint swelling . D enies L imited range of motion . D enies M uscle aches. D enies M uscle weakness . D enies S tiffness . N eurologic: No N eurologic Complaints . D enies A bnormal gait . D enies F ocal weakness . D enies H eadache . D enies I ncoordination .?Denies M reanna problems . D enies N umbness . D enies S eizures . D enies?Slurred Speech. P sychiatric: No P sychiatric Complaints . D enies A nxiety .?Denies D ecreased concentration . D enies I rritability . D enies P anic attacks . D enies S leep disturbance . D enies S adness/tearfulness. H ematologic/lymphatic: No H em/Lymph Complaints . D enies B ruising . D enies B leeding tendencies . D enies L ymphadenopathy . D enies R ecurrent infections . A llergic/immunologic: Admits E czema. D enies S easonal allergies . D enies U rticaria . E ndocrine: No E ndocrine Complaints . D enies P olydipsia .?Denies P olyphagia . D enies P olyuria . * Medical History: E ndometriosis. * Surgical History: B reast Augmentation 2022. * Hospitalization/Major Diagno stic Procedure: V aginal delivery x 5 . * Family History: F ather: alive, diagnosed with Other malignant neoplasm of unspecified site. M other: alive, diagnosed with Diabetes mellitus without mention of complication, type II or unspecified type, not stated as uncontrolled, Unspecified essential hypertension. P aternal Grand Father: , diagnosed with Other malignant neoplasm of unspecified site. P aternal Grand Mother: , diagnosed with Other malignant neoplasm of unspecified site. M aternal Grand Father: , diagnosed with Unspecified essential hypertension. M aternal Grand Mother: , diagnosed with Other malignant neoplasm of unspecified site. 1 brother(s) , 2 sister(s) - healthy. 2 son(s) , 3 daughter(s) - healthy. . Father - Lung, Liver, and Eye CA Paternal Grandfather - Bladder CA Paternal Grandmother - Brain and Lung CA Maternal Graqndmother - Lung CA. * Social History: T obacco Use: T obacco Control (Standard) T obacco use: F ormer smoker, W hen did you start smoking? 1 , W hen did you stop smoking? 0 09/11/2022, H ow long has it been since you last smoked? 1 -5 years. D rugs/Alcohol: D rugs H ave you used drugs other than those for medical reasons in the past 12 months??No. C affeine I ntake: m ore than 4 cups per day. D o you smoke marijuana?: Denies. Do you drink alcohol?: Yes. D rug/Alcohol: A IRENE-C (Standard) D id you have a drink containing alcohol in the past year? Y es, H ow often did you have six or more drinks on one occasion in the past year? N ever (0 point), H ow many drinks did you have on a typical day when you were drinking in the past year? 1 or 2 drinks (0 point), H ow often did you have a drink containing alcohol in the past year? 2 to 4 times a month (2 points), P oints 2 , I nterpretation N egative. * Medications: T aking Ibuprofen 200 MG Capsule 1-2 capsule with food or milk as needed Orally Three times a day As needed, Medication List reviewed and reconciled with the patient * Allergies: N .K.D.A. Objective: * Vitals: T emp:97.4F, HR:77/min, BP:116/74mm Hg, Wt:188lbs, BMI:31.28Index, Ht: 65 in, RR:16/min, Oxygen sat %:98%, Peak Flow: RA, Ht-cm: 165.1 cm, Wt-k.28 kg. ple. * Examination: G eneral Examination: FUNCTIONAL STATUS A mbulatory . COGNITIVE STATUS A lert and oriented. GENERAL APPEARANCE: i n no acute distress, well developed, well nourished. NUTRITIONAL STATUS N ormal . ASSISTED DEVICES N one. HEAD: n ormocephalic, atraumatic. EYES: p upils equal, reactive to light and accommodation.? EARS: n ormal. ORAL CAVITY: m ucosa moist. THROAT: c lear. NECK/THYROID: n darrell supple, full range of motion, no cervical lymphadenopathy. SKIN: w arm and dry. HEART: r egular rate and rhythm, S1, S2 normal. LUNGS: c lear to auscultation bilaterally. ABDOMEN: n ormal, bowel sounds present, soft, nontender, nondistended. EXTREMITIES: n o clubbing, cyanosis, or edema. NEUROLOGIC: n onfocal, cranial nerves 2-12 grossly intact, motor strength normal upper and lower extremities, sensory exam intact. PSYCH: a lert, oriented x 3. Assessment: * Assessment: 1. R aiden - R21 (Primary) 2 . E czema - L30.9 3 . E ndometriosis - N80.9 4 . A llergic rhinitis - J30.9 5 . T obacco use disorder - F17.200 6 . O besity (BMI 30-39.9) - E66.9 7 . Family history of diabetes mellitus - Z83.3 8 . F amily history of hypertension - Z82.49 Plan: * Treatment: * Preventive Medicine: Counseling: C are goal follow-up plan: A gilberto Normal BMI Follow-up E xercise promotion: stretching, Feeding regime. * * Electronic signature of Manny Lazaro MD on 05/28/2025 at 11:10 AM EST Sign off status: Pending * Provider: Je Lazaro M.D. Date: Generated for Nathaliei ng/Faghassang/eTransmitting on: 07/28/2024 11:10 AM EST History and Physical Notes * Examination Category Sub-Category Detail Notes Category Not es General Examination GENERAL APPEARANCE: in no ac terry distress, well developed, well nourished HEAD: normocephalic, atrau matic EYES: pupils equal, reacti ve to light and accommodation EARS: normal THROAT: clear NECK/THYROID: neck supple, full ra nge of motion, no cervical lymphadenopathy HEART: regular rate and rhy thm, S1, S2 normal LUNGS: clear to auscultatio n bilaterally ABDOMEN: normal, bowel sounds present, soft, nontender, nondistended NEUROLOGIC: nonfocal, cranial ne rves 2-12 grossly intact, motor strength normal upper and lower extremities, sensory exam intact SKIN: warm and dry EXTREMITIES: no clubbing, cyanosi s, or edema PSYCH: alert, oriented x 3 ORAL CAVITY: mucosa moist FUNCTIONAL STATUS Ambulatory COGNITIVE STATUS Alert and oriented NUTRITIONAL STATUS Normal ASSISTED DEVICES None
--- OUTSIDE RECORDS SUMMARY | 2024-05-10 07:15 | XMS_ITS ---
Author Organization [facility] Address [address] [address] Care Team Providers Care Mainframe Analyst Name Role Phone Kev Lazaro Primary Care Provider Encounters Encounter Location Date Provider Diagnosis [address] [place] [address] 05/10/2024 Kev Lazaro Plan Of Treatment No Information Progress Notes * PAULO LUIS REGINADOB: 1990 (35 yo F)Acc No.[id number]:05/10/2024 Progress Notes Patient: PAULO RICHTER Provider: Je Lazaro M.D. :1990 A ge:34 Y S ex:Female Date:05/10/2024 [place] [place] Subjective: * Chief Complaints: * * Medical History: Objective: * Vitals: Assessment: Plan: * Treatment: * * Electronic signature of Manny Lazaro MD on 05/28/2025 at 11:09 AM EST Sign off status: Pending * Provider: Je Lazaro M.D. Date: Generated for Printi ng/Faxing/eTransmitting on: 07/28/2024 11:09 AM EST
--- OUTSIDE RECORDS SUMMARY | 2025-05-28 10:10 | XMS_ITS | Patient Health Record ---
Author Organization [facility] Address [address] [address] Care Team Providers Care Duplicator Punch Set Up Operator Name Role Phone Kev Lazaro Primary Care [...] Notes Problem Family history of diabetes mellitus (919126224) Family history of diabetes mellitus (Z83.3) Active confirmed Problem Rash (842393261) Rash (R21) Active confirmed Problem Allergic rhinitis (39551993) Allergic rhinitis (J30.9) Active confirmed Problem Endometriosis (198459196) Endometriosis (N80.9) Active confirmed Problem Tobacco use (273523770) Tobacco use disorder (F17.200) Active confirmed Problem Family history of hypertension (307257210) Family history of hypertension (Z82.49) Active confirmed Problem Eczema (51695410) Eczema (L30.9) Active confirm ed Problem Obesity (484850292) Obesity (BMI 30-39.9) (E66.9) Active confirmed Plan Of Treatment No Information Insurance Providers Payer Name Payer Address Payer Phone Subscriber Number Group Number Insured Name Patient Relationship to Insured Coverage Start Date Coverage End Date [employer] [address] [facility] [place] [address] [id number] PAULO LUIS Self - patient is the insured 4 Medical (General) History Medical History History ICD Code Endometriosis Surgical History Surgery Date(Month/Year) Breast Augmentation 2022 Hospitalization History Reason Date(Month/Year) Vaginal delivery x 5
--- OUTSIDE RECORDS SUMMARY | 2025-05-28 10:11 | XMS_ITS | Clinical Summary ---
Author Organization [facility] Address [address] [place] [address] Care Team Providers Care Straw Hat Brusher Name Role Phone None, Physician Primary Care Provider Unavailabl e Source Comments [facility],non-owned Affiliates and Associated Physician Practices is amultiple site organization consisting of ambulatory clinics and hospital sitesin [place], [place], [place] and [place]. This disclosure is being madepursuant to the Care Everywhere program and may not contain all information available regarding this patient. Last updated 18.[employer] [facility] Allergies No known active allergies Medications * [...] 9:26 PM CDT Height 165.1 cm (5' 5) 11/04/2023 9:26 PM CDT Body Mass Index 29.12 11/04/2023 9:26 PM CDT Plan of Treatment Health Maintenance Due Date Last Done Comments HIV SCREENING 2005 HEPATITIS C SCREENING 05/01/2008 HEPATITIS B VACCINE (1 of 3 - 19+ 3-dose series) 2009 PAP SMEAR 2011 HPV VACCINE (1 - 3-dose SCDM series) 2017 DEPRESSION SCREENING 07/14/2024 COVID-19 VACCINE (2 - 2024-2 6 season) 2025 06/09/2021 INFLUENZA VACCINE (#1) 2025 DTAP/TDAP/TD VACCINES (2 - T d [...] patient's age to complete this topic Insurance [facility] SELF PAY NO INSURANCE Member Subscriber Plan / Payer (Ef fective for All Dates) Name:Paulo Luis Member ID:Not on file Relation to Subscriber:Not on file Name:PAULO LUIS Subscriber ID:Not on file (Home) Address: [address] [place] [address] Payer ID:Not on file Group ID:Not on file Type:Self Pay Address: [place], [place] Care Teams Straw Hat Brusher Relationship Specialty Start Date End Date None, Physician [address] [place] [address] PCP - General 11/04/23
[2025-05-28 10:29] VITALS: BP 138/85; PULSE 88; RESP 20; TEMP 36.7; O2SAT 100
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
[2025-05-28 10:45] LABS: EDSTREPNEGPOS1 Positive (Negative)
== END 2025-05-28 11:01 | disposition home or self-care (01) ==
PROVIDERS: Emergency Provider Nurse Practitioner
DX: J02.0 Streptococcal pharyngitis (principal); Z87.891 Personal history of nicotine dependence
CPT/HCPCS: 87880; 99213; G0463